=== PATIENT | male | born 1960 | race Caucasian/White ===

== ENCOUNTER 2016-11-28 06:37 | Inpatient (IN) | payer OTHER ==
[~2016-11-28] VITALS: Ht 167.6 cm; Wt 86.2 kg
[~2016-11-28 06:37] MED LIST: ASPIRIN; CARVEDILOL; LISINOPRIL; OMEPRAZOLE; POLY17PO6 PO; TRAM50TA2 PO
[2016-11-28] MEDS ORDERED: ACETAMINOPHEN 325 MG TAB PO STA (07:06)
[2016-11-28] MEDS ORDERED: SOD CHLORIDE 0.9% 1,000 ML IV ONE ×2 (07:30→08:30)
[2016-11-28] MEDS ORDERED: ONDANSETRON 4 MG INJ IV STA (07:41)
[2016-11-28] MEDS ORDERED: morphine 4 MG/ML VIAL IV STA ×2 (07:41→08:55)
[2016-11-28 07:43] LABS: ADD SCAN DIFF NO
[2016-11-28 07:51] LABS: ABNORMAL IP MESSAGE 1; BASOPHILS % 0.2 % (0.0-2.0); HEMATOCRIT 31.9 % (42.0-52.0); HEMOGLOBIN 9.9 g/dl (14.0-18.0); LYMPHOCYTES # 0.6 10^3/ul (0.8-2.9); LYMPHOCYTES % 2.8 % (15.0-51.0); MEAN CORPUSCULAR VOLUME 77.4 fl (82.0-101.0); MEAN PLATELET VOLUME 10.7 fl (7.4-10.4); MONOCYTE # 0.7 10^3/ul (0.3-0.9); MONOCYTES % 3.3 % (0.0-11.0); NEUTROPHIL # 19.7 10^3/ul (1.6-7.5); NEUTROPHILS % 92.9 % (39.0-77.0); PLATELET COUNT 260 10^3/UL (140-415); RED BLOOD COUNT 4.12 10^6/ul (4.70-6.10); RED CELL DISTRIBUTION WIDTH 17.9 % (11.5-14.5); WHITE BLOOD COUNT 21.2 10^3/ul (4.8-10.8)
--- NOTE | 2016-11-28 07:59 | RADRPT ---
PROCEDURE: XR Chest. CLINICAL INDICATION: Possible sepsis. TECHNIQUE: Single frontal view of the chest was obtained. COMPARISON: 05/17/2016 FINDINGS: Cardiomediastinal silhouette appears normal Pulmonary vasculature appears normal. Lung ochoa appear clear. Costophrenic angles are well defined. There are mid sternotomy wires and clips in the mediastinum from previous CABG. IMPRESSION: 1. No evidence for active cardiopulmonary disease. RPTAT: [facility] Physician Vandana Date Time Electronically viewed and signed by jS Dave Physician on 11/28/2016 07:59 /
[2016-11-28 08:03] LABS: ALBUMIN 3.9 g/dl (3.3-4.9); ALBUMIN/GLOBULIN RATIO 0.97; BILIRUBIN,INDIRECT 0.1 mg/dl (0-1.1); BILIRUBIN,TOTAL 0.1 mg/dl (0.2-1.3); CALCIUM 8.5 mg/dl (8.4-10.2); CREATININE 0.85 mg/dl (0.61-1.24); POTASSIUM 3.1 mmol/L (3.5-5.1); TOTAL PROTEIN 7.9 g/dl (6.1-8.1)
[2016-11-28 08:04] LABS: INR 1.25; PROTIME 15.8 Sec (12.2-14.2); PT RATIO 1.2
[2016-11-28 08:05] LABS: PARTIAL THROMBOPLASTIN TIME 40.9 Sec (25.0-35.0)
[2016-11-28 08:14] LABS: TROPONIN-I 0.012 ng/ml (0.00-0.12)
[2016-11-28] MEDS ORDERED: FURO20TA3 PO (08:15)
[2016-11-28] MEDS ORDERED: ASPI81TA3 PO (08:15)
[2016-11-28] MEDS ORDERED: METO-429 PO (08:15)
[2016-11-28] MEDS ORDERED: OMEP40CA6 PO (08:15)
[2016-11-28] MEDS ORDERED: FLUT9.9S NASAL (08:15)
[2016-11-28] MEDS ORDERED: CEFTRIAXONE 1 GM/50 ML (PMX) 50 ML IVPB ONE (08:30)
[2016-11-28] MEDS ORDERED: SOD CHLORIDE 0.9% 250 ML IV ONE (08:30)
[2016-11-28] MEDS ORDERED: SOD CHLORIDE 0.9% 500 ML IV ONE (08:30)
[2016-11-28 09:56] LABS: ADD UMIC YES; URINE BILIRUBIN (Dip) NEGATIVE (NEGATIVE); URINE BLOOD (Dip) 1+ (NEGATIVE); URINE COLOR LT. YELLOW (YELLOW); URINE GLUCOSE (Dip) NEGATIVE (NEGATIVE); URINE KETONES (Dip) 15 (NEGATIVE); URINE LEUKOCYTE ESTERASE (Dip) NEGATIVE (NEGATIVE); URINE NITRITE (Dip) NEGATIVE (NEGATIVE); URINE TOTAL PROTEIN (Dip) 1+ (NEGATIVE); URINE UROBILINOGEN (Dip) 1.0 E.U./dL (0.1-1.0)
[2016-11-28 10:09] LABS: BACTERIA,URINE RARE; URINE RBCS 0-2 /HPF (0)
[2016-11-28] MEDS ORDERED: KETOROLAC 30 MG INJ IV STA (10:53)
[2016-11-28] MEDS ORDERED: METOCLOPRAMIDE 10 MG INJ IV ONE (11:00)
[2016-11-28] MEDS ORDERED: DIPHENHYDRAMINE 50 MG INJ IV ONE (11:00)
[2016-11-28] MEDS ORDERED: ACETAMINOPHEN 325 MG TAB PO PRN (12:00)
[2016-11-28] MEDS ORDERED: ONDANSETRON 4 MG INJ IV PRN ×2 (12:00→15:00)
--- NOTE | 2016-11-28 13:08 | ERA ---
ER Documentation Chief Complaint Date/Time DATE: 11/28/16 TIME: 12:49 Chief Complaint BODYACHES, HEADACHE, FEVER, RECENT DX OF UTI HPI 56-year-old male with a history of hypertension, mitral valve replacement and atrial fibrillation on Eliquis presenting to the ER with complaints of fever, body aches, and headache. He was recently seen by his typists supervisor, Dr. Apple , 2 days ago and had a cardioversion done. During that time, he was noted to be febrile and have a dirty UA. [place] [facility] [place]. Antibiotics were given. Patient signed out AMA and was discharged with Keflex for a UTI. He has been taking his Keflex but does not feel any better. The only symptom that has improved is his dysuria. He denies any chest pain, shortness of breath, cough, sore throat, abdominal pain. He denies any neck stiffness or neck pain. He started having headaches, 6 out of 10, frontal and throbbing yesterday. No nausea or vomiting. Of note, 20 days ago he had a dental procedure where he had a crown placed. He did get prophylactic amoxicillin. ROS All systems reviewed and are negative except as per history of present illness. Medications Home Meds Active Scripts Tramadol HCl (Tramadol HCl) 50 Mg Tablet, 50 MG PO Q4 Y for PAIN, #20 TAB Prov:JOSSUE HALEY PA-C 05/17/16 Reported Medications Omeprazole* (Omeprazole*) 40 Mg Capsule.dr, 40 MG PO DAILY, #30 CAP 11/28/16 Metoprolol Tartrate* (Lopressor*) 50 Mg Tab, 150 MG PO BID, #60 TAB 11/28/16 Furosemide* (Furosemide*) 20 Mg Tablet, 40 MG PO BID, #30 TAB 11/28/16 Fluticasone Propionate (Flonase Allergy Relief) 9.9 Ml [place].susp, 1 SPRAY NASAL BID, #1 BOTTLE TO EACH NOSTRIL 11/28/16 Aspirin* (Aspirin* Chew) 81 Mg Tab.chew, 81 MG PO DAILY, TAB.CHEW 11/28/16 Allergies Allergies: Coded Allergies: No Known Allergy (Unverified , 01/01/16) PMhx/Soc History of Surgery: Yes (MITRAL VALVE REPLACEMENT) Anesthesia Reaction: No Hx Respiratory Disorders: No Hx Cardiac Disorders: Yes (Hypertension, atrial fibrillation, mitral valve replacement) Hx Psychiatric Problems: No Hx Miscellaneous Medical Probl: Yes (CURRENTLY TREATED FOR UTI) Hx Alcohol Use: No Hx Substance Use: No Hx Tobacco Use: No Smoking Status: Never smoker FmHx Family History: No diabetes Physical Exam Vitals Vital Signs Date Time Temp Pulse Resp B/P Pulse Ox O2 Delivery O2 Flow Rate FiO2 11/28/16 13:00 98.7 87 24 143/82 100 Room Air 11/28/16 08:31 99.1 78 15 101/63 98 Nasal Cannula 2.0 11/28/16 07:42 Nasal Cannula 2 11/28/16 06:41 100.8 98 17 108/69 96 Physical Exam Const: No apparent distress, nontoxic Head: Atraumatic Eyes: Normal Conjunctiva ENT: Normal External Ears, Nose and Mouth. Neck: Full range of motion..~ No meningismus. Resp: Clear to auscultation bilaterally Cardio: Regular rate and rhythm, no murmurs Abd: Soft, non tender, non distended. Normal bowel sounds Skin: No petechiae or rashes Back: No midline or flank tenderness Ext: No cyanosis, or edema Neur: Awake and alert Psych: Normal Mood and Affect Result Diagram: 11/28/16 0720 11/28/16 0720 Results 24 hrs Laboratory Tests Test 11/28/16 07:20 11/28/16 09:10 11/28/16 10:47 White Blood Count 21.210^3/ul Red Blood Count 4.1210^6/ul Hemoglobin 9.9g/dl Hematocrit 31.9% Mean Corpuscular Volume 77.4fl Mean Corpuscular Hemoglobin 24.0pg Mean Corpuscular Hemoglobin Concent 31.0g/dl Red Cell Distribution Width 17.9% Platelet Count 65023^3/UL Mean Platelet Volume 10.7fl Neutrophils % 92.9% Lymphocytes % 2.8% Monocytes % 3.3% Eosinophils % 0.0% Basophils % 0.2% Nucleated Red Blood Cells % 0.0/100WBC Neutrophils # 19.710^3/ul Lymphocytes # 0.610^3/ul Monocytes # 0.710^3/ul Eosinophils # 0.010^3/ul Basophils # 0.010^3/ul Nucleated Red Blood Cells # 0.010^3/ul Prothrombin Time 15.8Sec Prothrombin Time Ratio 1.2 INR International Normalized Ratio 1.25 Activated Partial Thromboplast Time 40.9Sec Sodium Level 136mmol/L Potassium Level 3.1mmol/L Chloride Level 105mmol/L Carbon Dioxide Level 21mmol/L Anion Gap 13 Blood Urea Nitrogen 11mg/dl Creatinine 0.85mg/dl Glucose Level 133mg/dl Lactic Acid Level 1.0mmol/L 0.8mmol/L Calcium Level 8.5mg/dl Total Bilirubin 0.1mg/dl Direct Bilirubin 0.00mg/dl Indirect Bilirubin 0.1mg/dl Aspartate Amino Transf (AST/SGOT) 24IU/L Alanine Aminotransferase (ALT/SGPT) 25IU/L Alkaline Phosphatase 106IU/L Troponin I 0.012ng/ml Total Protein 7.9g/dl Albumin 3.9g/dl Globulin 4.00g/dl Albumin/Globulin Ratio 0.97 Urine Color LT. YELLOW Urine Clarity CLEAR Urine pH 5.5 Urine Specific [place] 1.010 Urine Ketones 15 Urine Nitrite NEGATIVE Urine Bilirubin NEGATIVE Urine Urobilinogen 1.0 E.U./dL Urine Leukocyte Esterase NEGATIVE Urine Microscopic RBC 0-2/HPF Urine Microscopic WBC 0-2/HPF Urine Epithelial Cells FEW Urine Bacteria RARE Urine Hemoglobin 1+ Urine Glucose NEGATIVE% Urine Total Protein 1+ Current Medications Medications (Trade) Dose Ordered Sig/Toribio Route PRN Reason Start Time Stop Time Status Last Admin Dose Admin Acetaminophen 1000 mg 1,000 mg ONCE STAT PO 11/28/16 07:06 11/28/16 07:09 DC 11/28/16 07:17 Sodium Chloride (NS) 1,000 ml @ 1,000 mls/hr Q1H ONCE IV 11/28/16 07:30 11/28/16 08:29 DC 11/28/16 07:17 Morphine Sulfate (morphine) 4 mg ONCE STAT IV 11/28/16 07:41 11/28/16 07:43 DC 11/28/16 07:57 Ondansetron HCl 4 mg 4 mg ONCE STAT IV 11/28/16 07:41 11/28/16 07:43 DC 11/28/16 07:56 Sodium Chloride 1,000 ml @ 1,000 mls/hr Q1H ONCE IV 11/28/16 08:30 11/28/16 09:29 DC 11/28/16 08:27 Sodium Chloride 500 ml @ 500 mls/hr Q1H ONCE IV 11/28/16 08:30 11/28/16 09:29 DC 11/28/16 08:27 Sodium Chloride 250 ml @ 250 mls/hr Q1H ONCE IV 11/28/16 08:30 11/28/16 09:29 DC 11/28/16 08:27 Ceftriaxone Sodium (Rocephin) 50 ml @ 100 mls/hr ONCE ONCE IVPB 11/28/16 08:30 11/28/16 08:59 DC 11/28/16 09:11 Morphine Sulfate (morphine) 4 mg ONCE STAT IV 11/28/16 08:55 11/28/16 08:56 DC 11/28/16 09:17 Metoclopramide HCl (Reglan) 10 mg ONCE ONCE IV 11/28/16 11:00 11/28/16 11:01 DC 11/28/16 11:12 Ketorolac Tromethamine (Toradol) 30 mg ONCE STAT IV 11/28/16 10:53 11/28/16 10:54 DC 11/28/16 11:12 Diphenhydramine HCl (Benadryl) 25 mg ONCE ONCE IV 11/28/16 11:00 11/28/16 11:01 DC 11/28/16 11:12 Ondansetron HCl (Zofran Inj) 4 mg ER BRIDGE PRN IV NAUSEA AND/OR VOMITING 11/28/16 12:00 11/29/16 11:59 Acetaminophen (Tylenol Tab) 650 mg ER BRIDGE PRN PO MILD PAIN/FEVER 11/28/16 12:00 11/29/16 11:59 Procedures/MDM EMERGENT LABS AND DIAGNOSTIC STUDIES: Lab Results above were reviewed and interpreted by pr. CBC was notable for significant leukocytosis and anemia 12-lead EKG was interpreted by Samm Rice MD: Normal Sinus Rhythm Normal axis Normal intervals No acute ST or T wave changes suggestive of acute ischemia or STEMI. Radiology Results as interpreted by Radiology below were reviewed by Juana Rice MD: Radiology Results as read by Radiology Chest x-ray does not show any acute abnormality Initial Nursing notes reviewed. Previous Medical Records requested via the Electronic Health Record. EMERGENCY DEPARTMENT COURSE / MEDICAL DECISION MAKING: Patient is presenting with generalized body aches and fever. His workup was notable for fever and leukocytosis. Urinalysis did not show any evidence of infection. His chest x-ray did not show evidence of pneumonia. I have a low suspicion for meningitis or encephalitis. He does not seem to have acute surgical abdomen. It is unclear what his infectious source is. I considered endocarditis, given his recent dental procedure and history of mitral valve replacement. I spoke with his typists supervisor, who stated that he did a transesophageal echocardiogram 2 days ago before his cardioversion and did not see any mitral valve vegetations. Rocephin was given IV. His headache was treated with Toradol, Tylenol, Reglan, and Benadryl. Patient's infectious symptoms have not stabilized and the patient is at risk of rapid decompensation. The patient will be admitted for careful hydration, antibiotic therapy, and infectious source control. Severe Sepsis Assessment: Infectious Source: Unknown Severe Sepsis Managment: Blood Cultures X 2 before broad spectrum antibiotics initiated within 3 hours of recognition. 30 ml/kg NS bolus Completed Initial Lactate: normal Repeat Lactate not indicated as initial < 2.0 Critical Care: Time: 35 minutes Treatments/Evaluations: Emergent fluid management, while maintaining close respiratory support. Immediate broad spectrum antibiotic therapy. Simultaneous assessment for possible sources in order to direct therapy. Consideration for invasive and chemical support to prevent respiratory or cardiac collapse. Accepting Care Team: Current data and ongoing care discussed. Time: Time of admission Primary Provider: Christelle Consulting: none Outstanding Data: cultures Departure Diagnosis: Primary Impression: Sepsis Qualified Code: A41.9 - Sepsis, due to unspecified organism Condition: Serious BRENDA RICE MD November 28, 2016 12:59
[2016-11-28] MEDS: SOD CHLORIDE 0.9% 1,000 ML IV SCH ×2 (14:40→18:27)
[2016-11-28] MEDS ORDERED: MAGNESIUM HYDROXIDE 30ML CUP PO PRN (15:00)
[2016-11-28] MEDS ORDERED: NACL 0.9% 3 ML SYG IV SCH (15:00)
[2016-11-28] MEDS ORDERED: HYDROCODONE/APAP (5/325) TAB PO PRN (15:00)
[2016-11-28] MEDS ORDERED: morphine 2 MG INJ IV PRN (15:00)
[2016-11-28] MEDS ORDERED: ACETAMINOPHEN 650 MG SUPP PR PRN (15:00)
[2016-11-28] MEDS ORDERED: VANCOMYCIN IV PER PHARMACY XX SCH (15:00)
[2016-11-28] MEDS ORDERED: DOCUSATE SODIUM 100 MG CAP PO PRN (15:00)
[2016-11-28] MEDS ORDERED: BISACODYL 10 MG SUPP PR PRN (15:00)
--- NOTE | 2016-11-28 15:16 | CONS ---
DATE OF ADMISSION: 11/28/2016 DATE OF CONSULTATION: 11/28/2016 TYPE OF CONSULTATION: Infectious Disease. REASON FOR CONSULTATION: Antibiotic management. HISTORY OF PRESENT ILLNESS: Amando Miller is a 56-year-old male with numerous problems who comes in w ith fever, body aches, headaches and recent diagnosis of UTI. His past problems include: 1. Hypertension. 2. Mitral valve replacement. 3. Atrial fibrillation, on Eliquis. Acutely, the patient presents with fever, body aches and headache. He was seen by Dr. Apple a few days ago and had cardioversion done. He was febrile and had a UA which appeared to be infected. H e was sent to [facility]. Antibiotics were given. He signed out AMA, discharged with [facility] ex for UTI. He does not feel any better. Denies chest pain, shortness of breath, sore throat, neck stiffness or neck pain. There is no nausea or vomiting. He had a dental procedure 20 days ago, puga d a crown placed, and was put on prophylactic amoxicillin. PAST MEDICAL HISTORY: Operations as outlined. FAMILY HISTORY: Noncontributory. SOCIAL HISTORY: He does not smoke, drink or abuse drugs. ALLERGIES: NONE TO PENICILLIN, SULFA OR FOODS. MEDICATIONS: Per chart. REVIEW OF SYSTEMS: As per HPI. PHYSICAL EXAMINATION: GENERAL: The patient is a well-developed, well-nourished male who is alert, responsive, in no acute distress. VITAL SIGNS: Stable. Temperature max of 100.8. SKIN: Without generalized rash. HEENT: Within normal limits. NECK: Supple. LYMPH NODES: None palpable. CHEST: Decreased breath sounds at the bases. HEART: Without murmur or gallop. ABDOMEN: Soft, nontender, without organosplenomegaly or masses. EXTREMITIES: Without cyanosis, clubbing, or edema. RECTAL AND GENITAL: Deferred. NEUROLOGIC: No focal neurological abnormalities. LABORATORY DATA: White count was 21.2, H and H of 9.9 and 31.9, platelet count 260,000. BUN and cr eatinine 11/0.85. IMPRESSION AND PLAN: The patient was started on ceftriaxone. His chest x-ray showed no evidence fo r acute or active cardiopulmonary disease. UA was negative for nitrites, leukocyte esterase, 0 to 2 white cells per high-power field. So the etiology of his illness is really not clear. He has had blood cultures done and urine cultures done. I think we will put him on vancomycin and cefepime to cover him until we know what is going on. I will dictate my findings to the hospitalist. Dictated By: SARAH GARRETT MD, JD/PALLAVI Conf#: [id number] DID#: [id number]
[2016-11-28] MEDS: PANTOPRAZOLE 40 MG INJ IV SCH (15:25)
[2016-11-28] MEDS ORDERED: VANCOMYCIN 1.75 GM in SOD CHLORIDE 0.9% 500 ML IVPB SCH (16:00)
[2016-11-28 16:30] VITALS: TEMP 102.1
[2016-11-28] MEDS ORDERED: IBUPROFEN 600 MG TAB PO ONE (16:30)
[2016-11-28] MEDS ORDERED: POTASSIUM CHLORIDE (SR) 20 MEQ TAB PO STA (16:52)
--- NOTE | 2016-11-28 16:58 | HP ---
Date/Time of Note Date/Time of Note DATE: 11/28/16 TIME: 16:52 Assessment/Plan VTE Prophylaxis VTE Prophylaxis Intervention: SCD's Assessment/Plan Chief Complaint/Hosp Course Impression and plan 1. Sepsis. Etiology unknown. ID was consulted. Continue on antibiotics. Await bhgaat cultures. Continue with antipyretics as needed for fever. Continue on IV fluids. 2. Essential hypertension. Continue antihypertensives and adjust needed 3. History of dysrhythmia. Continue beta-merlin. Patient to be monitored on telemetry unit. We will follow-up with patient's story analyst (Dr. Apple) 4. Hypokalemia. Will replete and check level in a.m. 5. Anemia. Follow-up on iron panel Discussed plan of care with Dr. Bourgeois DVT prophylaxis: SCDs Admission process 40 minute Problems: HPI/ROS Admit Date/Time Admit Date/Time Hx of Present Illness This is a 56-year-old male with reported past medical history of hypertension and suspect CHF who did come to [facility] due to reports of generalized body ache and fevers. Of note patient was recently seen by his story analyst 2 days prior to his admission at [facility] for JOSELINE and reported cardioversion. At that time over that he was noted with possible UTI. It was reported that the patient left AMA and was discharged with Keflex. He reports that his fevers and general body aches progressively got worse and subsequently went to [facility] for further evaluation. Upon examination he did have initial urinalysis that did show him to have a negative leukocyte esterase test. He did have a white count of 21.2 and imaging of his chest show no evidence of active cardiopulmonary disease process. He also was noted with a fever as high as 102.1. Patient also noted with some tachycardia with heart rate 103. Patient denies any chest pain or shortness of breath. He denies any sick contacts or any coughing. He also reports that he has not had his flu shot. He denies any other symptoms besides his general body aches and chills and fevers. We will evaluate him for the aformentiond issues ROS 12 point review of systems obtained and entirely negative except that mentioned in history of present illness PMH/Family/Social Past Medical History Medical/surgical history 1. Hypertension 2. History of dysrhythmia Social History Smoking Status: Never smoker Exam/Review of Systems Vital Signs Vitals Vital Signs Date Time Temp Pulse Resp B/P Pulse Ox O2 Delivery O2 Flow Rate FiO2 11/28/16 16:30 102.1 103 18 146/81 11/28/16 13:00 100 Room Air 11/28/16 08:31 2.0 Exam Constitutional: alert, oriented Psych: nl mood/affect, no complaints Head: normocephalic Neck: non-tender, No jvd Respiratory: clear to auscultation, normal air movement Cardiovascular: other Gastrointestinal: non-tender, soft Musculoskeletal: nl extremities to inspection, nl gait and stance Extremities: normal pulses Skin: nl turgor, No rash or lesions Labs Result Diagram: 11/28/1671911/28/16 0720 Medications Medications Current Medications Aspirin (Aspirin) 81 mg DAILY PO ; Start 11/29/16 at 09:00 Fluticasone Propionate (Flonase 0.05% Nasal) 1 spray BID NASAL ; Start 11/28/16 at 21:00 Furosemide (Lasix) 40 mg BID@06,18 PO ; Start 11/28/16 at 18:00 Metoprolol Tartrate (Lopressor) 150 mg BID PO ; Start 11/28/16 at 21:00 Tramadol HCl 50 mg 50 mg Q4 PRN PO PAIN; Start 11/28/16 at 14:30 Sodium Chloride (NS) 1,000 ml @ 75 mls/hr [id number] IV Last administered on 11/28t 14:40; Admin Dose 75 MLS/HR; Start 11/28/16 at 14:40 Ondansetron HCl (Zofran Inj) 4 mg Q6H PRN IV NAUSEA AND/OR VOMITING; Start at 15:00 Acetaminophen (Tylenol Tab) 650 mg Q6H PRN PO PAIN LEVEL 1-3 OR FEVER; Start at 15:00 Acetaminophen (Tylenol Supp) 650 mg Q6H PRN IN PAIN LEVEL 1-3 OR FEVER; Start 11/28/16 at 15:00 Acetaminophen/ Hydrocodone Bitart ([place] (5/325)) 1 tab Q6H PRN PO MODERATE PAIN LEVEL 4-6; Start 11/28/16 at 15:00 Acetaminophen/ Hydrocodone Bitart ([place] (5/325)) 2 tab Q6H PRN PO SEVERE PAIN LEVEL 7-10; Start 11/28/16 at 15:00 Morphine Sulfate (morphine) 2 mg Q4H PRN IV SEVERE PAIN LEVEL 7-10; Start 11/28 at 15:00 Docusate Sodium (Colace) 100 mg Q12H PRN PO CONSTIPATION; Start 11/28/16 at 15: 00 Magnesium Hydroxide (Milk Of Mag) 30 ml DAILY PRN PO CONSTIPATION; Start at 15:00 Bisacodyl (Dulcolax Supp) 10 mg DAILY PRN IN CONSTIPATION; Start 11/28/16 at 15 :00 Pantoprazole 40 mg 40 mg DAILY@06 IV ; Start 11/28/16 at 16:00 Cefepime HCl 50 ml @ 100 mls/hr Q12 IVPB ; Start 11/28/16 at 21:00 Vancomycin HCl 1.75 gm/Sodium Chloride 500 ml @ 125 mls/hr NOW IVPB Last administered on 11/28/16t 16:29; Admin Dose 125 MLS/HR; Start 11/28/16 at 16:00 ; Stop 11/28/16 at 19:59 Vancomycin HCl/ Sodium Chloride (Vancocin/NS) 250 ml @ 83.333 mls/ hr Q12H IVPB ; Start 11/29/16 at 04:00 URBAN STOCKTON November 28, 2016 16:58
[2016-11-28 17:17] VITALS: PULSE 90
[2016-11-28 17:45] VITALS: Ht 167.6 cm; Wt 86.2 kg
[2016-11-28 18:20] LABS: TOTAL IRON BINDING CAPACITY 314 ug/dl (241-421)
[2016-11-28 18:21] LABS: IRON < 10 ug/dl (35-150)
[2016-11-28] MEDS: FUROSEMIDE 20 MG TAB PO SCH (18:26)
[2016-11-28 18:50] VITALS: PULSE 61
[2016-11-28 19:51] VITALS: BP 115/65; RESP 20
[2016-11-28 20:00] VITALS: PULSE 77
[2016-11-28] MEDS: CEFEPIME 1GM/50 ML (PMX) 50 ML IVPB SCH (20:26)
[2016-11-28] MEDS: FLUTICASONE 0.05% 16 GM NAS SPRAY NASAL SCH (20:27)
[2016-11-28] MEDS: METOPROLOL 50 MG TAB PO SCH (20:27)
[2016-11-28] MEDS ORDERED: CARV6.25 PO (20:31)
[2016-11-28] MEDS ORDERED: TAMS-14 PO (20:31)
[2016-11-28] MEDS ORDERED: APIX2.5T PO (20:33)
[2016-11-29] VITALS (11 sets, daily range): BP systolic 115–143; BP diastolic 63–74; PULSE 78–88; RESP 18–21
[2016-11-29] MEDS: ACETAMINOPHEN 325 MG TAB PO PRN ×2 (00:28→18:03)
[2016-11-29] MEDS: VANCOMYCIN 1.25 GM in SOD CHLORIDE 0.9% 250 ML IVPB SCH ×2 (03:44→16:05)
[2016-11-29] MEDS: traMADol 50 MG TAB PO PRN ×2 (03:51→09:14)
[2016-11-29] MEDS: PANTOPRAZOLE 40 MG INJ IV SCH (05:44)
[2016-11-29] MEDS: HYDROCODONE/APAP (5/325) TAB PO PRN ×2 (05:45→19:10)
[2016-11-29] MEDS: FUROSEMIDE 20 MG TAB PO SCH ×2 (05:46→18:05)
[2016-11-29] MEDS ORDERED: PANTOPRAZOLE (EC) 40 MG TAB PO SCH (06:00)
[2016-11-29 07:58] LABS: ALBUMIN 3.2 g/dl (3.3-4.9); ALBUMIN/GLOBULIN RATIO 0.91; BILIRUBIN,INDIRECT 0.1 mg/dl (0-1.1); BILIRUBIN,TOTAL 0.1 mg/dl (0.2-1.3); CALCIUM 7.6 mg/dl (8.4-10.2); CHOL/HDL RATIO 6.2 RATIO; CREATININE 0.74 mg/dl (0.61-1.24); MAGNESIUM 1.8 mg/dl (1.7-2.5); PHOSPHORUS 2.5 mg/dl (2.5-4.9); POTASSIUM 3.1 mmol/L (3.5-5.1); TOTAL PROTEIN 6.7 g/dl (6.1-8.1)
[2016-11-29 08:14] LABS: T3 UPTAKE 44.9 % (23.5-40.5)
[2016-11-29 08:27] LABS: THYROID STIMULATING HORMONE 3.32 MIU/L (0.465-4.680)
[2016-11-29] MEDS: FLUTICASONE 0.05% 16 GM NAS SPRAY NASAL SCH ×2 (09:00→20:24)
[2016-11-29] MEDS: CEFEPIME 1GM/50 ML (PMX) 50 ML IVPB SCH ×2 (09:07→20:23)
[2016-11-29] MEDS: TAMSULOSIN (SR) 0.4 MG CAP PO SCH (09:08)
[2016-11-29] MEDS: ASPIRIN 81 MG TAB PO SCH (09:08)
[2016-11-29] MEDS: METOPROLOL 50 MG TAB PO SCH ×2 (09:09→20:25)
--- NOTE | 2016-11-29 10:58 | CONS ---
Date/Time of Note Date/Time of Note DATE: 11/29/16 TIME: 10:57 Assessment/Plan Assessment/Plan Chief Complaint/Hosp Course ID PROGRESS NOTE CURRENT ABX: Cefepime + Vanco IV * 11/28/16 0720 11/29/16 0620 24H INTERVAL SUMMARY * 56 yo M, A/A/O, good historian, eating lunch * Reports dysuria mild burning, no hematuria, voiding OK * NO fever today, no CP,SOB . ------ PHYSICAL EXAMINATION: VITAL SIGNS: Afebrile, VSS, NAD GENERAL:NAD, A/A/O HEENT: Unremarkable NECK: Full ROM LUNGS: Equal chest rise without dyspnea on observation HEART: RRR ABDOMEN: Soft EXTREMITIES: Warm SKIN: Intact NEUROLOGICAL: Grossly intact ID IMPRESSION: 56 yo M admit with: 1. Sepsis on admission w/fever 102.1, myalgia, mild tachycardia, leukocytosis = > Dx with Sepsis due to UTI @ [place] recent-> DC'd on po Keflex w/ persistent fevers. 2. Complicated UTI w/ hematuria per UA w/ hx of Renal Stones * ABD X-ray w/(+) Possible large renal and ureteral stones. CT KUB may be helpful. 3. Hypertension. 4. H/O Mitral valve replacement ~2013 [facility] 3. Atrial fibrillation, on Eliquis-> s/p cardioversion prior to admission, EKG in ED revealed NSR 5. GERD w/H/O Chronic gastritis per EGD PATHO Report December 2015 A-Gastric biopsy : * -- Chronic gastritis, mild to focally moderate, active, involving antral and oxyntic mucosa. * -- No Helicobacter organisms are identified in a Giemsa stain * -- There is no evidence of intestinal metaplasia or malignancy. 6. H/O Polypectomy December 2015 B-Cecum, polyp, biopsy: * -- Diminutive tubular adenoma. * -- Normal mucosa is also present. * -- There is no evidence of malignancy. (-) MRSA Nares INVASIVES: PIV CURRENT ABX: Cefepime + Vanco IV ID RECOMMENDATION 1. Continue current ABX & await clinical improvement. 2. Consider CT ABD per radiology recommendations r/o obstructive uropathy; consider urology consult if obstructive renal stones present. 3. Obtain micro records from [facility] -> taper ABX per micro results -- probably DC Vanco IV soon .. Problems: Consultation Date/Type/Reason Admit Date/Time November 28, 2016 at 11:40 Initial Consult Date Exam/Review of Systems Vital Signs Vitals Vital Signs Date Time Temp Pulse Resp B/P Pulse Ox O2 Delivery O2 Flow Rate FiO2 11/29/16 08:32 86 11/29/16 08:07 98.1 18 122/68 95 11/28/16 13:00 Room Air 11/28/16 08:31 2.0 Intake and Output 11/28/16 11/28/16 11/29/16 15:00 23:00 07:00 Intake Total 1800 ml 645 ml 845 ml Balance 1800 ml 645 ml 845 ml Results Result Diagram: 11/28/16 0720 11/29/16 0620 Results 24 hrs Laboratory Tests Test 11/28/16 17:26 11/29/16 06:20 Lactic Acid Level 1.1 Iron Level < 10 L Total Iron Binding Capacity 314 Percent Iron Saturation Sodium Level 139 Potassium Level 3.1 L Chloride Level 110 Carbon Dioxide Level 21 Anion Gap 11 Blood Urea Nitrogen 9 Creatinine 0.74 Glucose Level 81 # Hemoglobin A1c 6.1 H Calcium Level 7.6 L Phosphorus Level 2.5 Magnesium Level 1.8 Total Bilirubin 0.1 L Direct Bilirubin 0.00 Indirect Bilirubin 0.1 Aspartate Amino Transf (AST/SGOT) 78 #H Alanine Aminotransferase (ALT/SGPT) 55 Alkaline Phosphatase 141 H Total Protein 6.7 # Albumin 3.2 L Globulin 3.50 H Albumin/Globulin Ratio 0.91 Triglycerides Level 139 Cholesterol Level 132 LDL Cholesterol, Calculated 83 HDL Cholesterol 21 L Cholesterol/HDL Ratio 6.2 Thyroid Stimulating Hormone (TSH) 3.320 Free Thyroxine Index 4.45 H Thyroxine (T4) 9.9 Triiodothyronine (T3) Uptake 44.9 H Medications Medications Current Medications Aspirin (Aspirin) 81 mg DAILY PO Last administered on 11/29/16 09:08; Admin Dose 81 MG; Start 11/29/16 at 09:00 Fluticasone Propionate (Flonase 0.05% Nasal) 1 spray BID NASAL Last administered on 11/28/16 20:27; Admin Dose 1 SPRAY; Start 11/28/16 at 21:00 Furosemide (Lasix) 40 mg BID@06,18 PO Last administered on 11/29/16 05:46; Admin Dose 40 MG; Start 11/28/16 at 18:00 Metoprolol Tartrate (Lopressor) 150 mg BID PO Last administered on 11/29/16 09 :09; Admin Dose 150 MG; Start 11/28/16 at 21:00 Tramadol HCl 50 mg 50 mg Q4 PRN PO PAIN Last administered on 11/29/16 09:14; Admin Dose 50 MG; Start 11/28/16 at 14:30 Sodium Chloride (NS) 1,000 ml @ 75 mls/hr [id number] IV Last administered on 11/28 18:27; Admin Dose 75 MLS/HR; Start 11/28/16 at 14:40 Ondansetron HCl (Zofran Inj) 4 mg Q6H PRN IV NAUSEA AND/OR VOMITING; Start at 15:00 Acetaminophen (Tylenol Tab) 650 mg Q6H PRN PO PAIN LEVEL 1-3 OR FEVER Last administered on 11/29/16 00:28; Admin Dose 650 MG; Start 11/28/16 at 15:00 Acetaminophen (Tylenol Supp) 650 mg Q6H PRN MD PAIN LEVEL 1-3 OR FEVER; Start 11/28/16 at 15:00 Acetaminophen/ Hydrocodone Bitart ([place] (5/325)) 1 tab Q6H PRN PO MODERATE PAIN LEVEL 4-6 Last administered on 11/29/16 00:28; Admin Dose 1 TAB; Start at 15:00 Acetaminophen/ Hydrocodone Bitart ([place] (5/325)) 2 tab Q6H PRN PO SEVERE PAIN LEVEL 7-10 Last administered on 11/29/16 05:45; Admin Dose 2 TAB; Start at 15:00 Morphine Sulfate (morphine) 2 mg Q4H PRN IV SEVERE PAIN LEVEL 7-10; Start 11/28 at 15:00 Docusate Sodium (Colace) 100 mg Q12H PRN PO CONSTIPATION; Start 11/28/16 at 15: 00 Magnesium Hydroxide (Milk Of Mag) 30 ml DAILY PRN PO CONSTIPATION; Start at 15:00 Bisacodyl (Dulcolax Supp) 10 mg DAILY PRN MD CONSTIPATION; Start 11/28/16 at 15 :00 Pantoprazole 40 mg 40 mg DAILY@06 IV Last administered on 11/29/16 05:44; Admin Dose 40 MG; Start 11/28/16 at 16:00 Cefepime HCl 50 ml @ 100 mls/hr Q12 IVPB Last administered on 11/29/16 09:07 ; Admin Dose 100 MLS/HR; Start 11/28/16 at 21:00 Vancomycin HCl/ Sodium Chloride (Vancocin/NS) 250 ml @ 83.333 mls/ hr Q12H IVPB Last administered on 11/29/16 03:44; Admin Dose 83.333 MLS/HR; Start at 04:00 Carvedilol (Coreg) 6.25 mg BID PO Last administered on 11/29/16 09:10; Admin Dose 6.25 MG; Start 11/28/16 at 21:00 Tamsulosin HCl (Flomax) 0.4 mg DAILY PO Last administered on 11/29/16 09:08; Admin Dose 0.4 MG; Start 11/29/16 at 09:00 Miscellaneous Information (*Rx Drug Level Order Reminder*) VANCOMYCIN TROUGH AT 0300 ONCE ONCE XX ; Start 11/30/16 at 03:00; Stop 11/30/16 at 03:01 VERA URBINA NP November 29, 2016 10:58
[2016-11-29] MEDS: SOD CHLORIDE 0.9% 1,000 ML IV SCH (16:06)
[2016-11-29] MEDS ORDERED: ACET/BUTAL/CAFF/CODEINE CAP PO ONE (19:30)
[2016-11-29 19:45] LABS: ADD SCAN DIFF NO
[2016-11-29 19:47] LABS: BASOPHILS % 0.4 % (0.0-2.0); EOSINOPHILS # 0.1 10^3/ul (0.0-0.5); HEMATOCRIT 29.6 % (42.0-52.0); HEMOGLOBIN 9.1 g/dl (14.0-18.0); LYMPHOCYTES % 11.7 % (15.0-51.0); MEAN CORPUSCULAR HEMOGLOBIN 23.7 pg (29.0-33.0); MEAN CORPUSCULAR HGB CONC 30.7 g/dl (32.0-37.0); MEAN CORPUSCULAR VOLUME 77.1 fl (82.0-101.0); MEAN PLATELET VOLUME 10.7 fl (7.4-10.4); MONOCYTE # 0.8 10^3/ul (0.3-0.9); MONOCYTES % 9.5 % (0.0-11.0); NEUTROPHIL # 6.2 10^3/ul (1.6-7.5); NEUTROPHILS % 75.6 % (39.0-77.0); NUCLEATED RED BLOOD CELLS% 0.4 /100WBC (0.0-0.0); PLATELET COUNT 236 10^3/UL (140-415); RED BLOOD COUNT 3.84 10^6/ul (4.70-6.10); WHITE BLOOD COUNT 8.2 10^3/ul (4.8-10.8)
--- NOTE | 2016-11-29 20:18 | PN ---
Date/Time of Note Date/Time of Note DATE: 11/29/16 TIME: 20:08 Assessment/Plan VTE Prophylaxis VTE Prophylaxis Intervention: SCD's Lines/Catheters IV [facility] Peripheral IV Urinary Cath still in place: No Assessment/Plan Chief Complaint/Hosp Course Impression and plan 1. Sepsis. continue ABX per ID. Await bhagat cultures. Continue with antipyretics as needed for fever. Continue on IV fluids. 2. Essential hypertension. Continue antihypertensives and adjust needed 3. History of dysrhythmia. Continue beta-merlin. Patient to be monitored on telemetry unit. 4. Hypokalemia. Will replete and check level in a.m. 5. Anemia. Follow-up on iron panel Discussed plan of care with Dr. Bourgeois DISPO/PLAN: cont on abx. await for clinical improvement. await culture results. d/c when medically stable and cleared by consultants DVT prophylaxis: SCDs Problems: Subjective 24 Hr Interval Summary Free Text/Dictation no s/s of distress at this time. comfortable Exam/Review of Systems Vital Signs Vitals Vital Signs Date Time Temp Pulse Resp B/P Pulse Ox O2 Delivery O2 Flow Rate FiO2 11/29/16 20:07 99.2 79 20 143/72 95 11/28/16 13:00 Room Air 11/28/16 08:31 2.0 Intake and Output 11/28/16 11/28/16 11/29/16 15:00 23:00 07:00 Intake Total 1800 ml 645 ml 845 ml Balance 1800 ml 645 ml 845 ml Exam Constitutional: alert, oriented Psych: nl mood/affect, no complaints Head: normocephalic Neck: non-tender, No jvd Respiratory: clear to auscultation, normal air movement Cardiovascular: other Gastrointestinal: non-tender, soft Musculoskeletal: nl extremities to inspection, nl gait and stance Extremities: normal pulses Skin: nl turgor, No rash or lesions Results Result Diagram: 11/29/16 1930 11/29/16 0620 Results 24 hrs Laboratory Tests Test 11/29/16 06:20 11/29/16 19:30 Sodium Level 139 Potassium Level 3.1 L Chloride Level 110 Carbon Dioxide Level 21 Anion Gap 11 Blood Urea Nitrogen 9 Creatinine 0.74 Glucose Level 81 # Hemoglobin A1c 6.1 H Calcium Level 7.6 L Phosphorus Level 2.5 Magnesium Level 1.8 Total Bilirubin 0.1 L Direct Bilirubin 0.00 Indirect Bilirubin 0.1 Aspartate Amino Transf (AST/SGOT) 78 #H Alanine Aminotransferase (ALT/SGPT) 55 Alkaline Phosphatase 141 H Total Protein 6.7 # Albumin 3.2 L Globulin 3.50 H Albumin/Globulin Ratio 0.91 Triglycerides Level 139 Cholesterol Level 132 LDL Cholesterol, Calculated 83 HDL Cholesterol 21 L Cholesterol/HDL Ratio 6.2 Thyroid Stimulating Hormone (TSH) 3.320 Free Thyroxine Index 4.45 H Thyroxine (T4) 9.9 Triiodothyronine (T3) Uptake 44.9 H White Blood Count 8.2 # Red Blood Count 3.84 L Hemoglobin 9.1 L Hematocrit 29.6 L Mean Corpuscular Volume 77.1 L Mean Corpuscular Hemoglobin 23.7 L Mean Corpuscular Hemoglobin Concent 30.7 L Red Cell Distribution Width 18.0 H Platelet Count 236 Mean Platelet Volume 10.7 H Neutrophils % 75.6 Lymphocytes % 11.7 L Monocytes % 9.5 Eosinophils % 1.0 Basophils % 0.4 Nucleated Red Blood Cells % 0.4 H Neutrophils # 6.2 Lymphocytes # 1.0 Monocytes # 0.8 Eosinophils # 0.1 Basophils # 0.0 Nucleated Red Blood Cells # 0.0 Medications Medications Current Medications Aspirin (Aspirin) 81 mg DAILY PO Last administered on 11/29/16 09:08; Admin Dose 81 MG; Start 11/29/16 at 09:00 Fluticasone Propionate (Flonase 0.05% Nasal) 1 spray BID NASAL Last administered on 11/28/16 20:27; Admin Dose 1 SPRAY; Start 11/28/16 at 21:00 Furosemide (Lasix) 40 mg BID@06,18 PO Last administered on 11/29/16 18:05; Admin Dose 40 MG; Start 11/28/16 at 18:00 Metoprolol Tartrate (Lopressor) 150 mg BID PO Last administered on 11/29/16 09 :09; Admin Dose 150 MG; Start 11/28/16 at 21:00 Tramadol HCl 50 mg 50 mg Q4 PRN PO PAIN Last administered on 11/29/16 09:14; Admin Dose 50 MG; Start 11/28/16 at 14:30 Sodium Chloride (NS) 1,000 ml @ 75 mls/hr [id number] IV Last administered on 11/29 16:06; Admin Dose 75 MLS/HR; Start 11/28/16 at 14:40 Ondansetron HCl (Zofran Inj) 4 mg Q6H PRN IV NAUSEA AND/OR VOMITING Last administered on 11/29/16 18:03; Admin Dose 4 MG; Start 11/28/16 at 15:00 Acetaminophen (Tylenol Tab) 650 mg Q6H PRN PO PAIN LEVEL 1-3 OR FEVER Last administered on 11/29/16 18:03; Admin Dose 650 MG; Start 11/28/16 at 15:00 Acetaminophen (Tylenol Supp) 650 mg Q6H PRN [place] PAIN LEVEL 1-3 OR FEVER; Start 11/28/16 at 15:00 Acetaminophen/ Hydrocodone Bitart ([place] (5/325)) 1 tab Q6H PRN PO MODERATE PAIN LEVEL 4-6 Last administered on 11/29/16 00:28; Admin Dose 1 TAB; Start at 15:00 Acetaminophen/ Hydrocodone Bitart ([place] (5/325)) 2 tab Q6H PRN PO SEVERE PAIN LEVEL 7-10 Last administered on 11/29/16 19:10; Admin Dose 2 TAB; Start at 15:00 Morphine Sulfate (morphine) 2 mg Q4H PRN IV SEVERE PAIN LEVEL 7-10; Start 11/28 at 15:00 Docusate Sodium (Colace) 100 mg Q12H PRN PO CONSTIPATION; Start 11/28/16 at 15: 00 Magnesium Hydroxide (Milk Of Mag) 30 ml DAILY PRN PO CONSTIPATION; Start at 15:00 Bisacodyl (Dulcolax Supp) 10 mg DAILY PRN [place] CONSTIPATION; Start 11/28/16 at 15 :00 Pantoprazole 40 mg 40 mg DAILY@06 IV Last administered on 11/29/16 05:44; Admin Dose 40 MG; Start 11/28/16 at 16:00 Cefepime HCl 50 ml @ 100 mls/hr Q12 IVPB Last administered on 11/29/16 09:07 ; Admin Dose 100 MLS/HR; Start 11/28/16 at 21:00 Vancomycin HCl/ Sodium Chloride (Vancocin/NS) 250 ml @ 83.333 mls/ hr Q12H IVPB Last administered on 11/29/16 16:05; Admin Dose 83.333 MLS/HR; Start at 04:00 Carvedilol (Coreg) 6.25 mg BID PO Last administered on 11/29/16 09:10; Admin Dose 6.25 MG; Start 11/28/16 at 21:00 Tamsulosin HCl (Flomax) 0.4 mg DAILY PO Last administered on 11/29/16 09:08; Admin Dose 0.4 MG; Start 11/29/16 at 09:00 Miscellaneous Information (*Rx Drug Level Order Reminder*) VANCOMYCIN TROUGH AT 0300 ONCE ONCE XX ; Start 11/30/16 at 03:00; Stop 11/30/16 at 03:01 Apixaban (Eliquis) 2.5 mg BID PO ; Start 11/29/16 at 21:00 URBAN STOCKTON November 29, 2016 20:18
[2016-11-29] MEDS: APIXABAN 5 MG TABLET PO SCH (20:27)
[2016-11-30] VITALS (13 sets, daily range): BP systolic 112–188; BP diastolic 62–96; PULSE 66–86; RESP 17–20
[2016-11-30 04:26] LABS: ADD SCAN DIFF NO
[2016-11-30 04:32] LABS: BASOPHILS % 0.4 % (0.0-2.0); EOSINOPHILS # 0.2 10^3/ul (0.0-0.5); EOSINOPHILS % 1.8 % (0.0-7.0); HEMATOCRIT 27.9 % (42.0-52.0); HEMOGLOBIN 8.7 g/dl (14.0-18.0); LYMPHOCYTES # 1.4 10^3/ul (0.8-2.9); LYMPHOCYTES % 16.4 % (15.0-51.0); MEAN CORPUSCULAR HGB CONC 31.2 g/dl (32.0-37.0); MEAN CORPUSCULAR VOLUME 77.1 fl (82.0-101.0); MEAN PLATELET VOLUME 10.7 fl (7.4-10.4); MONOCYTE # 1.2 10^3/ul (0.3-0.9); NEUTROPHIL # 5.6 10^3/ul (1.6-7.5); NEUTROPHILS % 66.1 % (39.0-77.0); NUCLEATED RED BLOOD CELLS% 0.2 /100WBC (0.0-0.0); PLATELET COUNT 209 10^3/UL (140-415); RED BLOOD COUNT 3.62 10^6/ul (4.70-6.10); RED CELL DISTRIBUTION WIDTH 17.9 % (11.5-14.5); WHITE BLOOD COUNT 8.4 10^3/ul (4.8-10.8)
[2016-11-30 04:59] LABS: CREATININE 0.66 mg/dl (0.61-1.24)
[2016-11-30 05:01] LABS: CALCIUM 7.8 mg/dl (8.4-10.2); CREATININE 0.66 mg/dl (0.61-1.24)
[2016-11-30] MEDS: VANCOMYCIN 1.25 GM in SOD CHLORIDE 0.9% 250 ML IVPB SCH ×3 (05:27→20:12)
[2016-11-30] MEDS: PANTOPRAZOLE 40 MG INJ IV SCH (05:28)
[2016-11-30] MEDS: FUROSEMIDE 20 MG TAB PO SCH ×2 (05:28→17:24)
[2016-11-30] MEDS: SOD CHLORIDE 0.9% 1,000 ML IV SCH ×2 (05:29→20:13)
[2016-11-30] MEDS: ACETAMINOPHEN 325 MG TAB PO PRN (07:01)
[2016-11-30] MEDS: traMADol 50 MG TAB PO PRN (07:02)
[2016-11-30] MEDS ORDERED: POTASSIUM CHLORIDE (SR) 20 MEQ TAB PO STA (07:47)
[2016-11-30] MEDS: FLUTICASONE 0.05% 16 GM NAS SPRAY NASAL SCH ×2 (08:43→20:12)
[2016-11-30] MEDS: CEFEPIME 1GM/50 ML (PMX) 50 ML IVPB SCH ×2 (08:43→20:10)
[2016-11-30] MEDS: ASPIRIN 81 MG TAB PO SCH (08:43)
[2016-11-30] MEDS: TAMSULOSIN (SR) 0.4 MG CAP PO SCH (08:45)
[2016-11-30] MEDS: APIXABAN 5 MG TABLET PO SCH ×2 (08:45→20:12)
[2016-11-30] MEDS: METOPROLOL 50 MG TAB PO SCH ×2 (08:46→20:11)
--- NOTE | 2016-11-30 14:59 | PN ---
Date/Time of Note Date/Time of Note DATE: 11/30/16 TIME: 14:49 Assessment/Plan VTE Prophylaxis VTE Prophylaxis Intervention: other (eliquis) Lines/Catheters [facility] ([facility]): Peripheral IV Urinary Cath still in place: No Assessment/Plan Chief Complaint/Hosp Course Impression and plan 1. Sepsis. continue ABX per ID. blood and urine culture negative so far. Continue with antipyretics as needed for fever. Continue on IV fluids. Follow up ID recs, possible CT abd? 2. Essential hypertension. Continue antihypertensives and adjust needed 3. History of dysrhythmia. Continue beta-merlin. Patient to be monitored on telemetry unit. stable 4. Hypokalemia. Will replete and check level in a.m. 5. Anemia. Follow-up on iron panel Discussed plan of care with Dr. Bourgeois DISPO/PLAN: cont on abx. still febrile await for clinical improvement. d/c when medically stable and cleared by consultants DVT prophylaxis: SCDs Problems: Subjective 24 Hr Interval Summary Free Text/Dictation Still with noted low-grade fevers. Denies any chest pain shortness of breath or dysuria.. Does report having some headaches at times Exam/Review of Systems Vital Signs Vitals Vital Signs Date Time Temp Pulse Resp B/P Pulse Ox O2 Delivery O2 Flow Rate FiO2 11/30/16 12:01 75 11/30/16 11:51 99.9 17 121/68 97 11/28/16 13:00 Room Air 11/28/16 08:31 2.0 Intake and Output 11/29/16 11/29/16 11/30/16 15:00 23:00 07:00 Intake Total 50 ml 2295 ml 220 ml Output Total 600 ml 450 ml Balance 50 ml 1695 ml -230 ml Exam Constitutional: alert, oriented Psych: no complaints Neck: supple, No jvd Respiratory: clear to auscultation, normal air movement Cardiovascular: regular rate and rhythm ( ) Gastrointestinal: non-tender, soft Musculoskeletal: nl extremities to inspection Neurological: [employer] II-XII intact, nl mental status, nl speech Skin: nl turgor, No rash or lesions Results Result Diagram: 11/30/16 0342 11/30/16 0342 Results 24 hrs Laboratory Tests Test 11/29/16 19:30 11/30/16 03:42 White Blood Count 8.2 # 8.4 Red Blood Count 3.84 L 3.62 L Hemoglobin 9.1 L 8.7 L Hematocrit 29.6 L 27.9 L Mean Corpuscular Volume 77.1 L 77.1 L Mean Corpuscular Hemoglobin 23.7 L 24.0 L Mean Corpuscular Hemoglobin Concent 30.7 L 31.2 L Red Cell Distribution Width 18.0 H 17.9 H Platelet Count 236 209 Mean Platelet Volume 10.7 H 10.7 H Neutrophils % 75.6 66.1 Lymphocytes % 11.7 L 16.4 Monocytes % 9.5 14.0 H Eosinophils % 1.0 1.8 Basophils % 0.4 0.4 Nucleated Red Blood Cells % 0.4 H 0.2 H Neutrophils # 6.2 5.6 Lymphocytes # 1.0 1.4 Monocytes # 0.8 1.2 H Eosinophils # 0.1 0.2 Basophils # 0.0 0.0 Nucleated Red Blood Cells # 0.0 0.0 Sodium Level 144 Potassium Level 3.0 L Chloride Level 104 Carbon Dioxide Level 25 Anion Gap 18 #H Blood Urea Nitrogen 8 Creatinine 0.66 Glucose Level 80 Calcium Level 7.8 L Magnesium Level 1.7 Vancomycin Level Trough 6.4 L Medications Medications Current Medications Aspirin (Aspirin) 81 mg DAILY PO Last administered on 11/30/16 08:43; Admin Dose 81 MG; Start 11/29/16 at 09:00 Fluticasone Propionate (Flonase 0.05% Nasal) 1 spray BID NASAL Last administered on 11/30/16 08:43; Admin Dose 1 SPRAY; Start 11/28/16 at 21:00 Furosemide (Lasix) 40 mg BID@06,18 PO Last administered on 11/30/16 05:28; Admin Dose 40 MG; Start 11/28/16 at 18:00 Metoprolol Tartrate (Lopressor) 150 mg BID PO Last administered on 11/30/16 08 :46; Admin Dose 150 MG; Start 11/28/16 at 21:00 Tramadol HCl 50 mg 50 mg Q4 PRN PO PAIN Last administered on 11/30/16 07:02; Admin Dose 50 MG; Start 11/28/16 at 14:30 Sodium Chloride (NS) 1,000 ml @ 75 mls/hr [id number] IV Last administered on 11/30 05:29; Admin Dose 75 MLS/HR; Start 11/28/16 at 14:40 Ondansetron HCl (Zofran Inj) 4 mg Q6H PRN IV NAUSEA AND/OR VOMITING Last administered on 11/29/16 18:03; Admin Dose 4 MG; Start 11/28/16 at 15:00 Acetaminophen (Tylenol Tab) 650 mg Q6H PRN PO PAIN LEVEL 1-3 OR FEVER Last administered on 11/30/16 07:01; Admin Dose 650 MG; Start 11/28/16 at 15:00 Acetaminophen (Tylenol Supp) 650 mg Q6H PRN [place] PAIN LEVEL 1-3 OR FEVER; Start 11/28/16 at 15:00 Acetaminophen/ Hydrocodone Bitart ([place] (5/325)) 1 tab Q6H PRN PO MODERATE PAIN LEVEL 4-6 Last administered on 11/29/16 00:28; Admin Dose 1 TAB; Start at 15:00 Acetaminophen/ Hydrocodone Bitart ([place] (5/325)) 2 tab Q6H PRN PO SEVERE PAIN LEVEL 7-10 Last administered on 11/29/16 19:10; Admin Dose 2 TAB; Start at 15:00 Morphine Sulfate (morphine) 2 mg Q4H PRN IV SEVERE PAIN LEVEL 7-10; Start 11/28 at 15:00 Docusate Sodium (Colace) 100 mg Q12H PRN PO CONSTIPATION; Start 11/28/16 at 15: 00 Magnesium Hydroxide (Milk Of Mag) 30 ml DAILY PRN PO CONSTIPATION; Start at 15:00 Bisacodyl (Dulcolax Supp) 10 mg DAILY PRN [place] CONSTIPATION; Start 11/28/16 at 15 :00 Pantoprazole 40 mg 40 mg DAILY@06 IV Last administered on 11/30/16 05:28; Admin Dose 40 MG; Start 11/28/16 at 16:00 Cefepime HCl (Maxipime 1gm/50 ml (Pmx)) 50 ml @ 100 mls/hr Q12 IVPB Last administered on 11/30/16 08:43; Admin Dose 100 MLS/HR; Start 11/28/16 at 21:00 Carvedilol (Coreg) 6.25 mg BID PO Last administered on 11/30/16 08:44; Admin Dose 6.25 MG; Start 11/28/16 at 21:00 Tamsulosin HCl (Flomax) 0.4 mg DAILY PO Last administered on 11/30/16 08:45; Admin Dose 0.4 MG; Start 11/29/16 at 09:00 Apixaban 2.5 mg 2.5 mg BID PO Last administered on 11/30/16 08:45; Admin Dose 2.5 MG; Start 11/29/16 at 21:00 Vancomycin HCl/ Sodium Chloride (Vancocin/NS) 250 ml @ 83.333 mls/ hr Q8H IVPB Last administered on 11/30/16 12:47; Admin Dose 83.333 MLS/HR; Start at 13:00 Miscellaneous Information (*Rx Drug Level Order Reminder*) VANCOMYCIN TROUGH AT 0400 ONCE ONCE XX ; Start 12/01/16 at 04:00; Stop 12/01/16 at 04:01 URBAN STOCKTON November 30, 2016 14:59
--- NOTE | 2016-11-30 16:27 | CONS ---
Date/Time of Note Date/Time of Note DATE: 11/30/16 TIME: 16:24 Assessment/Plan Assessment/Plan Chief Complaint/Hosp Course ID PROGRESS NOTE CURRENT ABX: Cefepime + Vanco IV 24H INTERVAL SUMMARY * Tspike today 103.0 * 56 yo M, A/A/O, good historian, eating lunch * Reports dysuria mild burning, no hematuria, voiding OK * NO fever today, no CP,SOB . ------ PHYSICAL EXAMINATION: VITAL SIGNS: Afebrile, VSS, NAD GENERAL:NAD, A/A/O HEENT: Unremarkable NECK: Full ROM LUNGS: Equal chest rise without dyspnea on observation HEART: RRR ABDOMEN: Soft EXTREMITIES: Warm SKIN: Intact NEUROLOGICAL: Grossly intact ID IMPRESSION: 56 yo M admit with: 1. Sepsis on admission w/fever 102.1, myalgia, mild tachycardia, leukocytosis = > Dx with Sepsis due to UTI @ [place] recent-> DC'd on po Keflex w/ persistent fevers. 2. Complicated UTI w/ hematuria per UA w/ hx of Renal Stones * ABD X-ray w/(+) Possible large renal and ureteral stones. CT KUB may be helpful. 3. Hypertension. 4. H/O Mitral valve replacement ~2013 [facility] 3. Atrial fibrillation, on Eliquis-> s/p cardioversion prior to admission, EKG in ED revealed NSR 5. GERD w/H/O Chronic gastritis per EGD PATHO Report December 2015 A-Gastric biopsy : * -- Chronic gastritis, mild to focally moderate, active, involving antral and oxyntic mucosa. * -- No Helicobacter organisms are identified in a Giemsa stain * -- There is no evidence of intestinal metaplasia or malignancy. 6. H/O Polypectomy December 2015 B-Cecum, polyp, biopsy: * -- Diminutive tubular adenoma. * -- Normal mucosa is also present. * -- There is no evidence of malignancy. (-) MRSA Nares INVASIVES: PIV CURRENT ABX: Cefepime + Vanco IV-> DC'd ID RECOMMENDATION 1. Continue current ABX & await clinical improvement. 2. Consider CT ABD per radiology recommendations r/o obstructive uropathy; consider urology consult if obstructive renal stones present. 3. Obtain micro records from [place] -> taper ABX per micro results -- probably DC Vanco IV soon .. Problems: Consultation Date/Type/Reason Admit Date/Time November 28, 2016 at 11:40 Exam/Review of Systems Vital Signs Vitals Vital Signs Date Time Temp Pulse Resp B/P Pulse Ox O2 Delivery O2 Flow Rate FiO2 11/30/16 16:06 69 11/30/16 15:18 98.7 19 115/65 96 11/28/16 13:00 Room Air 11/28/16 08:31 2.0 Intake and Output 11/29/16 11/29/16 11/30/16 15:00 23:00 07:00 Intake Total 50 ml 2295 ml 220 ml Output Total 600 ml 450 ml Balance 50 ml 1695 ml -230 ml Results Result Diagram: 11/30/16 0342 11/30/16 0342 Results 24 hrs Laboratory Tests Test 11/29/16 19:30 11/30/16 03:42 White Blood Count 8.2 # 8.4 Red Blood Count 3.84 L 3.62 L Hemoglobin 9.1 L 8.7 L Hematocrit 29.6 L 27.9 L Mean Corpuscular Volume 77.1 L 77.1 L Mean Corpuscular Hemoglobin 23.7 L 24.0 L Mean Corpuscular Hemoglobin Concent 30.7 L 31.2 L Red Cell Distribution Width 18.0 H 17.9 H Platelet Count 236 209 Mean Platelet Volume 10.7 H 10.7 H Neutrophils % 75.6 66.1 Lymphocytes % 11.7 L 16.4 Monocytes % 9.5 14.0 H Eosinophils % 1.0 1.8 Basophils % 0.4 0.4 Nucleated Red Blood Cells % 0.4 H 0.2 H Neutrophils # 6.2 5.6 Lymphocytes # 1.0 1.4 Monocytes # 0.8 1.2 H Eosinophils # 0.1 0.2 Basophils # 0.0 0.0 Nucleated Red Blood Cells # 0.0 0.0 Sodium Level 144 Potassium Level 3.0 L Chloride Level 104 Carbon Dioxide Level 25 Anion Gap 18 #H Blood Urea Nitrogen 8 Creatinine 0.66 Glucose Level 80 Calcium Level 7.8 L Magnesium Level 1.7 Vancomycin Level Trough 6.4 L Medications Medications Current Medications Aspirin (Aspirin) 81 mg DAILY PO Last administered on 11/30/16 08:43; Admin Dose 81 MG; Start 11/29/16 at 09:00 Fluticasone Propionate (Flonase 0.05% Nasal) 1 spray BID NASAL Last administered on 11/30/16 08:43; Admin Dose 1 SPRAY; Start 11/28/16 at 21:00 Furosemide (Lasix) 40 mg BID@06,18 PO Last administered on 11/30/16 05:28; Admin Dose 40 MG; Start 11/28/16 at 18:00 Metoprolol Tartrate (Lopressor) 150 mg BID PO Last administered on 11/30/16 08 :46; Admin Dose 150 MG; Start 11/28/16 at 21:00 Tramadol HCl 50 mg 50 mg Q4 PRN PO PAIN Last administered on 11/30/16 07:02; Admin Dose 50 MG; Start 11/28/16 at 14:30 Sodium Chloride (NS) 1,000 ml @ 75 mls/hr [id number] IV Last administered on 11/30 05:29; Admin Dose 75 MLS/HR; Start 11/28/16 at 14:40 Ondansetron HCl (Zofran Inj) 4 mg Q6H PRN IV NAUSEA AND/OR VOMITING Last administered on 11/29/16 18:03; Admin Dose 4 MG; Start 11/28/16 at 15:00 Acetaminophen (Tylenol Tab) 650 mg Q6H PRN PO PAIN LEVEL 1-3 OR FEVER Last administered on 11/30/16 07:01; Admin Dose 650 MG; Start 11/28/16 at 15:00 Acetaminophen (Tylenol Supp) 650 mg Q6H PRN [place] PAIN LEVEL 1-3 OR FEVER; Start 11/28/16 at 15:00 Acetaminophen/ Hydrocodone Bitart ([place] (5/325)) 1 tab Q6H PRN PO MODERATE PAIN LEVEL 4-6 Last administered on 11/29/16 00:28; Admin Dose 1 TAB; Start at 15:00 Acetaminophen/ Hydrocodone Bitart ([place] (5/325)) 2 tab Q6H PRN PO SEVERE PAIN LEVEL 7-10 Last administered on 11/29/16 19:10; Admin Dose 2 TAB; Start at 15:00 Morphine Sulfate (morphine) 2 mg Q4H PRN IV SEVERE PAIN LEVEL 7-10; Start 11/28 at 15:00 Docusate Sodium (Colace) 100 mg Q12H PRN PO CONSTIPATION; Start 11/28/16 at 15: 00 Magnesium Hydroxide (Milk Of Mag) 30 ml DAILY PRN PO CONSTIPATION; Start at 15:00 Bisacodyl (Dulcolax Supp) 10 mg DAILY PRN [place] CONSTIPATION; Start 11/28/16 at 15 :00 Pantoprazole 40 mg 40 mg DAILY@06 IV Last administered on 11/30/16 05:28; Admin Dose 40 MG; Start 11/28/16 at 16:00 Cefepime HCl (Maxipime 1gm/50 ml (Pmx)) 50 ml @ 100 mls/hr Q12 IVPB Last administered on 11/30/16 08:43; Admin Dose 100 MLS/HR; Start 11/28/16 at 21:00 Carvedilol (Coreg) 6.25 mg BID PO Last administered on 11/30/16 08:44; Admin Dose 6.25 MG; Start 11/28/16 at 21:00 Tamsulosin HCl (Flomax) 0.4 mg DAILY PO Last administered on 11/30/16 08:45; Admin Dose 0.4 MG; Start 11/29/16 at 09:00 Apixaban 2.5 mg 2.5 mg BID PO Last administered on 11/30/16 08:45; Admin Dose 2.5 MG; Start 11/29/16 at 21:00 Vancomycin HCl/ Sodium Chloride (Vancocin/NS) 250 ml @ 83.333 mls/ hr Q8H IVPB Last administered on 11/30/16 12:47; Admin Dose 83.333 MLS/HR; Start at 13:00 Miscellaneous Information (*Rx Drug Level Order Reminder*) VANCOMYCIN TROUGH AT 0400 ONCE ONCE XX ; Start 12/01/16 at 04:00; Stop 12/01/16 at 04:01 VERA URBINA NP November 30, 2016 16:27
[2016-11-30] MEDS: HYDROCODONE/APAP (5/325) TAB PO PRN (21:54)
[2016-12-01] VITALS (10 sets, daily range): BP systolic 123–160; BP diastolic 66–83; PULSE 60–78; RESP 18–21
[2016-12-01] MEDS: FUROSEMIDE 20 MG TAB PO SCH ×2 (06:40→17:22)
[2016-12-01] MEDS: PANTOPRAZOLE 40 MG INJ IV SCH (06:40)
[2016-12-01] MEDS: VANCOMYCIN 1.25 GM in SOD CHLORIDE 0.9% 250 ML IVPB SCH (06:40)
[2016-12-01] MEDS: HYDROCODONE/APAP (5/325) TAB PO PRN (06:43)
[2016-12-01] MEDS: CEFEPIME 1GM/50 ML (PMX) 50 ML IVPB SCH (09:07)
[2016-12-01] MEDS: APIXABAN 5 MG TABLET PO SCH (09:08)
[2016-12-01] MEDS: METOPROLOL 50 MG TAB PO SCH (09:08)
[2016-12-01] MEDS: FLUTICASONE 0.05% 16 GM NAS SPRAY NASAL SCH (09:09)
[2016-12-01] MEDS: ASPIRIN 81 MG TAB PO SCH (09:09)
[2016-12-01] MEDS: TAMSULOSIN (SR) 0.4 MG CAP PO SCH (09:09)
[2016-12-01] MEDS: SOD CHLORIDE 0.9% 1,000 ML IV SCH (09:09)
[2016-12-01] MEDS ORDERED: POTASSIUM CHLORIDE (SR) 20 MEQ TAB PO STA (11:14)
--- NOTE | 2016-12-01 11:19 | PN ---
Date/Time of Note Date/Time of Note DATE: 12/01/16 TIME: 11:17 Assessment/Plan Lines/Catheters IV [facility] Type (from [facility] Peripheral IV Urinary Cath still in place: No Assessment/Plan Assessment/Plan Hypokalemia, dyslipidemia with a low HDL, mild hypomagnesemia, iron deficiency anemia, likely secondary to chronic blood loss from hematuria versus gastritis Chronic gastritis on EGD from 2015 without H. pyloriBPH, status post mitral valve replacement on Eliquis probable cardiomyopathy on Lasix rule out paroxysmal atrial fibrillation history of kidney stones Exam/Review of Systems Vital Signs Vitals Vital Signs Date Time Temp Pulse Resp B/P Pulse Ox O2 Delivery O2 Flow Rate FiO2 12/01/16 08:02 78 12/01/16 08:01 97.8 18 160/74 98 11/28/16 13:00 Room Air 11/28/16 08:31 2.0 Intake and Output 11/30/16 11/30/16 12/01/16 15:00 23:00 07:00 Intake Total 675 ml 2675 ml 970 ml Output Total 450 ml Balance 675 ml 2675 ml 520 ml Results Result Diagram: 11/30/16 0342 11/30/16 0342 Medications Medications Current Medications Aspirin (Aspirin) 81 mg DAILY PO Last administered on 12/01/16 09:09; Admin Dose 81 MG; Start 11/29/16 at 09:00 Fluticasone Propionate (Flonase 0.05% Nasal) 1 spray BID NASAL Last administered on 12/01/16 09:09; Admin Dose 1 SPRAY; Start 11/28/16 at 21:00 Furosemide (Lasix) 40 mg BID@06,18 PO Last administered on 12/01/16 06:40; Admin Dose 40 MG; Start 11/28/16 at 18:00 Metoprolol Tartrate (Lopressor) 150 mg BID PO Last administered on 12/01/16 09 :08; Admin Dose 150 MG; Start 11/28/16 at 21:00 Tramadol HCl 50 mg 50 mg Q4 PRN PO PAIN Last administered on 11/30/16 07:02; Admin Dose 50 MG; Start 11/28/16 at 14:30 Sodium Chloride (NS) 1,000 ml @ 75 mls/hr [id number] IV Last administered on 12/01 09:09; Admin Dose 75 MLS/HR; Start 11/28/16 at 14:40 Ondansetron HCl (Zofran Inj) 4 mg Q6H PRN IV NAUSEA AND/OR VOMITING Last administered on 11/29/16 18:03; Admin Dose 4 MG; Start 11/28/16 at 15:00 Acetaminophen (Tylenol Tab) 650 mg Q6H PRN PO PAIN LEVEL 1-3 OR FEVER Last administered on 11/30/16 07:01; Admin Dose 650 MG; Start 11/28/16 at 15:00 Acetaminophen (Tylenol Supp) 650 mg Q6H PRN [place] PAIN LEVEL 1-3 OR FEVER; Start 11/28/16 at 15:00 Acetaminophen/ Hydrocodone Bitart ([place] (5/325)) 1 tab Q6H PRN PO MODERATE PAIN LEVEL 4-6 Last administered on 11/29/16 00:28; Admin Dose 1 TAB; Start at 15:00 Acetaminophen/ Hydrocodone Bitart ([place] (5/325)) 2 tab Q6H PRN PO SEVERE PAIN LEVEL 7-10 Last administered on 12/01/16 06:43; Admin Dose 2 TAB; Start at 15:00 Morphine Sulfate (morphine) 2 mg Q4H PRN IV SEVERE PAIN LEVEL 7-10; Start 11/28 at 15:00 Docusate Sodium (Colace) 100 mg Q12H PRN PO CONSTIPATION; Start 11/28/16 at 15: 00 Magnesium Hydroxide (Milk Of Mag) 30 ml DAILY PRN PO CONSTIPATION; Start at 15:00 Bisacodyl 10 mg 10 mg DAILY PRN [place] CONSTIPATION; Start 11/28/16 at 15:00 Cefepime HCl (Maxipime 1gm/50 ml (Pmx)) 50 ml @ 100 mls/hr Q12 IVPB Last administered on 12/01/16 09:07; Admin Dose 100 MLS/HR; Start 11/28/16 at 21:00 Carvedilol (Coreg) 6.25 mg BID PO Last administered on 12/01/16 09:08; Admin Dose 6.25 MG; Start 11/28/16 at 21:00 Tamsulosin HCl (Flomax) 0.4 mg DAILY PO Last administered on 12/01/16 09:09; Admin Dose 0.4 MG; Start 11/29/16 at 09:00 Apixaban (Eliquis) 2.5 mg BID PO Last administered on 12/01/16 09:08; Admin Dose 2.5 MG; Start 11/29/16 at 21:00 Pantoprazole 40 mg 40 mg DAILY@06 PO ; Start 12/02/16 at 06:00 Vancomycin HCl/ Sodium Chloride (Vancocin/NS) 250 ml @ 83.333 mls/ hr Q8H IVPB ; Start 12/01/16 at 14:00 Miscellaneous Information (*Rx Drug Level Order Reminder*) VANCOMYCIN TROUGH AT 1300 ONCE ONCE XX ; Start 12/01/16 at 13:00; Stop 12/01/16 at 13:01 JP GALDAMEZ December 01, 2016 11:19
[2016-12-01] MEDS ORDERED: POTASSIUM CHLORIDE 250 ML IVPB ONE (11:30)
[2016-12-01] MEDS ORDERED: MAGNESIUM SULFATE 2 GM/50 ML 50 ML IVPB ONE (11:30)
[2016-12-01] MEDS ORDERED: SOD FERRIC GLUC COMPLX 125 MG in SOD CHLORIDE 0.9% 100 ML IVPB SCH (13:00)
[2016-12-01] MEDS ORDERED: VANCOMYCIN 1.25 GM in SOD CHLORIDE 0.9% 250 ML IVPB SCH (14:00)
[2016-12-01] MEDS ORDERED: ASC500 PO (14:19)
[2016-12-01] MEDS ORDERED: AMOX1TAB10 PO (14:19)
[2016-12-01] MEDS ORDERED: DOCU-216 PO (14:19)
[2016-12-01] MEDS ORDERED: CIPR500T4 PO (14:19)
[2016-12-01] MEDS ORDERED: FER325 PO (14:19)
--- NOTE | 2016-12-01 15:31 | CONS ---
Date/Time of Note Date/Time of Note DATE: 12/01/16 TIME: 15:29 Assessment/Plan Assessment/Plan Chief Complaint/Hosp Course ID PROGRESS NOTE CURRENT ABX: Cefepime + Vanco IV 24H INTERVAL SUMMARY * Afebrile today after Tspike 103.0 am yesterday ? etiology * 56 yo M, A/A/O -- feels better, talking on phone, no new issues * Voiding OK * NO fever today, no CP,SOB . ------ PHYSICAL EXAMINATION: VITAL SIGNS: Afebrile, VSS, NAD GENERAL:NAD, A/A/O HEENT: Unremarkable NECK: Full ROM LUNGS: Equal chest rise without dyspnea on observation HEART: RRR ABDOMEN: Soft EXTREMITIES: Warm SKIN: Intact NEUROLOGICAL: Grossly intact ID IMPRESSION: 56 yo M admit with: 1. Sepsis on admission w/fever 102.1, myalgia, mild tachycardia, leukocytosis = > Dx with Sepsis due to UTI @ [place] recent-> DC'd on po Keflex w/ persistent fevers. 2. Complicated UTI w/ hematuria per UA w/ hx of Renal Stones * ABD X-ray w/(+) Possible large renal and ureteral stones. CT KUB may be helpful. 3. Hypertension. 4. H/O Mitral valve replacement ~2013 [facility] 3. Atrial fibrillation, on Eliquis-> s/p cardioversion prior to admission, EKG in ED revealed NSR 5. GERD w/H/O Chronic gastritis per EGD PATHO Report December 2015 A-Gastric biopsy : * -- Chronic gastritis, mild to focally moderate, active, involving antral and oxyntic mucosa. * -- No Helicobacter organisms are identified in a Giemsa stain * -- There is no evidence of intestinal metaplasia or malignancy. 6. H/O Polypectomy December 2015 B-Cecum, polyp, biopsy: * -- Diminutive tubular adenoma. * -- Normal mucosa is also present. * -- There is no evidence of malignancy. (-) MRSA Nares INVASIVES: PIV CURRENT ABX: Cefepime + + Vanco IV ID RECOMMENDATION 1. Continue current ABX & await clinical improvement. 2. Obtain micro records from [place] -> taper ABX per micro results [place] if/when available .. Problems: Consultation Date/Type/Reason Admit Date/Time November 28, 2016 at 11:40 Exam/Review of Systems Vital Signs Vitals Vital Signs Date Time Temp Pulse Resp B/P Pulse Ox O2 Delivery O2 Flow Rate FiO2 12/01/16 12:14 60 12/01/16 11:44 98.0 18 143/66 98 11/28/16 13:00 Room Air 11/28/16 08:31 2.0 Intake and Output 11/30/16 11/30/16 12/01/16 15:00 23:00 07:00 Intake Total 675 ml 2675 ml 970 ml Output Total 450 ml Balance 675 ml 2675 ml 520 ml Results Result Diagram: 11/30/16 0342 11/30/16 0342 Medications Medications Current Medications Aspirin (Aspirin) 81 mg DAILY PO Last administered on 12/01/16 09:09; Admin Dose 81 MG; Start 11/29/16 at 09:00 Fluticasone Propionate (Flonase 0.05% Nasal) 1 spray BID NASAL Last administered on 12/01/16 09:09; Admin Dose 1 SPRAY; Start 11/28/16 at 21:00 Furosemide (Lasix) 40 mg BID@06,18 PO Last administered on 12/01/16 06:40; Admin Dose 40 MG; Start 11/28/16 at 18:00 Metoprolol Tartrate (Lopressor) 150 mg BID PO Last administered on 12/01/16 09 :08; Admin Dose 150 MG; Start 11/28/16 at 21:00 Tramadol HCl 50 mg 50 mg Q4 PRN PO PAIN Last administered on 11/30/16 07:02; Admin Dose 50 MG; Start 11/28/16 at 14:30 Sodium Chloride (NS) 1,000 ml @ 75 mls/hr [id number] IV Last administered on 12/01 09:09; Admin Dose 75 MLS/HR; Start 11/28/16 at 14:40 Ondansetron HCl (Zofran Inj) 4 mg Q6H PRN IV NAUSEA AND/OR VOMITING Last administered on 11/29/16 18:03; Admin Dose 4 MG; Start 11/28/16 at 15:00 Acetaminophen (Tylenol Tab) 650 mg Q6H PRN PO PAIN LEVEL 1-3 OR FEVER Last administered on 11/30/16 07:01; Admin Dose 650 MG; Start 11/28/16 at 15:00 Acetaminophen (Tylenol Supp) 650 mg Q6H PRN WI PAIN LEVEL 1-3 OR FEVER; Start 11/28/16 at 15:00 Acetaminophen/ Hydrocodone Bitart ([place] (5/325)) 1 tab Q6H PRN PO MODERATE PAIN LEVEL 4-6 Last administered on 11/29/16 00:28; Admin Dose 1 TAB; Start at 15:00 Acetaminophen/ Hydrocodone Bitart ([place] (5/325)) 2 tab Q6H PRN PO SEVERE PAIN LEVEL 7-10 Last administered on 12/01/16 06:43; Admin Dose 2 TAB; Start at 15:00 Morphine Sulfate (morphine) 2 mg Q4H PRN IV SEVERE PAIN LEVEL 7-10; Start 11/28 at 15:00 Docusate Sodium (Colace) 100 mg Q12H PRN PO CONSTIPATION; Start 11/28/16 at 15: 00 Magnesium Hydroxide (Milk Of Mag) 30 ml DAILY PRN PO CONSTIPATION; Start at 15:00 Bisacodyl 10 mg 10 mg DAILY PRN WI CONSTIPATION; Start 11/28/16 at 15:00 Cefepime HCl (Maxipime 1gm/50 ml (Pmx)) 50 ml @ 100 mls/hr Q12 IVPB Last administered on 12/01/16 09:07; Admin Dose 100 MLS/HR; Start 11/28/16 at 21:00 Carvedilol (Coreg) 6.25 mg BID PO Last administered on 12/01/16 09:08; Admin Dose 6.25 MG; Start 11/28/16 at 21:00 Tamsulosin HCl (Flomax) 0.4 mg DAILY PO Last administered on 12/01/16 09:09; Admin Dose 0.4 MG; Start 11/29/16 at 09:00 Apixaban (Eliquis) 2.5 mg BID PO Last administered on 12/01/16 09:08; Admin Dose 2.5 MG; Start 11/29/16 at 21:00 Pantoprazole 40 mg 40 mg DAILY@06 PO ; Start 12/02/16 at 06:00 Vancomycin HCl 1.25 gm/Sodium Chloride 250 ml @ 83.333 mls/ hr Q8H IVPB ; Start 12/01/16 at 14:00 Potassium Chloride 250 ml @ 62.5 mls/hr ONCE ONCE IVPB Last administered on 13:54; Admin Dose 62.5 MLS/HR; Start 12/01/16 at 11:30; Stop 12/01/16 at 15:29 Ferric Sodium Gluconate Complex/ Sodium Chloride (Ferrlecit/NS) 110 ml @ 110 mls/hr Q24H IVPB Last administered on 12/01/16 13:52; Admin Dose 110 MLS/HR; Start 12/01/16 at 13:00; Stop 12/05/16 at 13:59 VERA URBINA NP December 01, 2016 15:31
--- NOTE | 2016-12-01 18:59 | DS ---
Date/Time of Note Date/Time of Note DATE: 12/01/16 TIME: 18:30 Discharge Summary Admission/Discharge Info Admit Date/Time November 28, 2016 at 11:40 Discharge Date/Time December 01, 2016 at 17:50 Final Diagnosis 1. Sepsis: source unclear: resolved 2. Essential hypertension. controlled 3. Atrial fibrillation s/p successful cardioversion about 5 days ago 5. Anemia likley 2/2 iron deficiency from chronic occult hematuria from kidney stones 6. dyslipidemia with a low HDL 7. Mild hypomagnesemia: repleted 8. Chronic gastritis on EGD from 2016 without H. pylori 9. Chronic BPH 10. Status post mitral valve replacement 11. probable cardiomyopathy on Lasix 12, history of kidney stones . Patient Condition: Stable Consults Roberta: ID . Hx of Present Illness This is a 56-year-old male with reported past medical history of hypertension and suspect CHF who did come to [facility] due to reports of generalized body ache and fevers. Of note patient was recently seen by his rewind operator 2 days prior to his admission at [facility] for JOSELINE and reported cardioversion. At that time over that he was noted with possible UTI. It was reported that the patient left AMA and was discharged with Keflex. He reports that his fevers and general body aches progressively got worse and subsequently went to [facility] for further evaluation. Upon examination he did have initial urinalysis that did show him to have a negative leukocyte esterase test. He did have a white count of 21.2 and imaging of his chest show no evidence of active cardiopulmonary disease process. He also was noted with a fever as high as 102.1. Patient also noted with some tachycardia with heart rate 103. Patient denies any chest pain or shortness of breath. He denies any sick contacts or any coughing. He also reports that he has not had his flu shot. He denies any other symptoms besides his general body aches and chills and fevers. We will evaluate him for the aformentiond issues Hospital Course This 56-year-old male was admitted and commenced on broad-spectrum antibiotics. He was seen by infection disease and was started on a wide spectrum as there was no obvious source of his sepsis. He however responded well to this regimen and that that is at this time, he has been fever free for more than 24 hours and he is requesting to be discharged. Blood and urine cultures have been repeatedly negative, and an influenza screen was also negative. He did have multiple electrolyte abnormalities including hypomagnesemia and hypokalemia all of which were corrected. He also had a mild elevation in his AST and hypochromic microcytic anemia that was somewhat concerning in the light of the fact that the patient was on anticoagulation therapy post cardioversion. I spoken with the rewind operator who did his cardioversion Dr. Apple and he is okay with the patient being discharged home but patient has to stay on Eliquis for at least a month. I have advised the patient to follow-up closely with his primary care doctor for continued electrolyte monitoring as well as continued monitoring of his hemoglobin levels. I feel that his anemia may be secondary to occult hematuria likely from kidney stones, and this might be worsened by Eliquis. However Eliquis is necessary for his cardiac function and as such patient would be better monitored closely by his primary care doctor. I have explained this to him in detail; he has verbalized understanding. Comorbidities were also aggressively managed as per Med records. Patient at this time has been evaluated and examined in detail and is assessed to be in stable condition and ready for discharge. Home Meds Active Scripts Amoxicillin/Potassium Clav (Amox-Clav 875-125 mg Tablet) 875-125 mg Tab, 1 TAB PO BID, #14 TAB Prov:JP GALDAMEZ. 12/01/16 Ciprofloxacin Hcl* (Ciprofloxacin Hcl*) 500 Mg Tablet, 500 MG PO BID, #14 TAB Prov:JP GALDAMEZ . 12/01/16 Ascorbic Acid (Vitamin C) 500 Mg Tab, 500 MG PO DAILY for 30 Days, TAB Prov:JP GALADMEZ . 12/01/16 Ferrous Sulfate* (Ferrous Sulfate*) 325 Mg Tabec, 325 MG PO TID for 30 Days, TAB Prov:JP GALDAMEZ . 12/01/16 Docusate Sodium (Dok) 100 Mg Capsule, 100 MG PO Q12H for 30 Days, CAP Prov:RUDOLPHJP . 12/01/16 Tramadol HCl (Tramadol HCl) 50 Mg Tablet, 50 MG PO Q4 Y for PAIN, #20 TAB Prov:JOSSUE HALEY PA-C 05/17/16 Reported Medications Apixaban* (Eliquis*) 2.5 Mg Tablet, 2.5 MG PO BID, TAB 11/28/16 Carvedilol* (Coreg*) 6.25 Mg Tablet, 6.25 MG PO BID, #60 TAB 11/28/16 Tamsulosin Hcl* (Flomax*) 0.4 Mg Cap.er.24h, 0.4 MG PO DAILY, CAP 11/28/16 Omeprazole* (Omeprazole*) 40 Mg Capsule.dr, 40 MG PO DAILY, #30 CAP 11/28/16 Metoprolol Tartrate* (Lopressor*) 50 Mg Tab, 150 MG PO BID, #60 TAB 11/28/16 Furosemide* (Furosemide*) 20 Mg Tablet, 40 MG PO BID, #30 TAB 11/28/16 Fluticasone Propionate (Flonase Allergy Relief) 9.9 Ml [place].susp, 1 SPRAY NASAL BID, #1 BOTTLE TO EACH NOSTRIL 11/28/16 Aspirin* (Aspirin* Chew) 81 Mg Tab.chew, 81 MG PO DAILY, TAB.CHEW 11/28/16 Follow-up Plan Patient will call his primary doctor's office and try and get an appointment before the end of the week for hemoglobin check and he will also follow-up with his rewind operator as previously scheduled. . Primary Care Provider Not On Staff Doctor Time spent on discharge: > 30 minutes JP GALDAMEZ December 01, 2016 18:40
[2016-12-02] MEDS ORDERED: PANTOPRAZOLE (EC) 40 MG TAB PO SCH (06:00)
== END 2016-12-01 17:50 | disposition home or self-care (01) | DRG 872 ==
LOC: FTE 06:37 → TEL 11:40
PROVIDERS: ADMIT Hospitalist; ATTEND Hospitalist
DX: A41.9 Sepsis, unspecified organism (principal); I42.9 Cardiomyopathy, unspecified; I48.91 Unspecified atrial fibrillation; E83.42 Hypomagnesemia; N20.0 Calculus of kidney; N39.0 Urinary tract infection, site not specified; I10 Essential (primary) hypertension; E87.6 Hypokalemia; E78.5 Hyperlipidemia, unspecified; N40.0 Benign prostatic hyperplasia without lower urinary tract symptoms; D50.0 Iron deficiency anemia secondary to blood loss (chronic); K21.9 Gastro-esophageal reflux disease without esophagitis; K29.50 Unspecified chronic gastritis without bleeding; R31.9 Hematuria, unspecified; Z95.2 Presence of prosthetic heart valve; Z86.79 Personal history of other diseases of the circulatory system; Z87.442 Personal history of urinary calculi
CPT/HCPCS: 36415; 71010; 80048; 80053; 80061; 80202; 81001; 82565; 83036; 83540; 83605; 83735; 84100; 84436; 84443; 84479; 84484; 84520; 85025; 85610; 85730; 87040; 87086; 87400; 93005; 96361; 96365; 96375; 96376; C9113; J0692; J0696; J1200; J1885; J2270; J2405; J2765; J2916; J3370; J3475; J3480; J7030; J7040; J7050

== ENCOUNTER 2017-01-28 11:09 | Emergency (ER) | payer SELFPAY ==
[~2017-01-28] VITALS: Ht 175.3 cm; Wt 83.0 kg
[~2017-01-28 11:09] MED LIST changes: +AMOX1TAB10 PO; +APIX2.5T PO; +ASC500 PO; +ASPI81TA3 PO; -ASPIRIN; +CARV6.25 PO; -CARVEDILOL; +CIPR500T4 PO; +DOCU-216 PO; +FER325 PO; +FLUT9.9S NASAL; +FURO20TA3 PO; -LISINOPRIL; +METO-429 PO; +OMEP40CA6 PO; -OMEPRAZOLE; -POLY17PO6 PO; +TAMS-14 PO
[2017-01-28 11:12] VITALS: Ht 175.3 cm; Wt 83.0 kg
--- NOTE | 2017-01-28 12:12 | ERA ---
ER Documentation Chief Complaint Date/Time DATE: 01/28/17 TIME: 12:11 Chief Complaint abd pain x 21 weeks ROS All systems reviewed and are negative except as per history of present illness. Medications Home Meds Active Scripts Amoxicillin/Potassium Clav (Amox-Clav 875-125 mg Tablet) 875-125 mg Tab, 1 TAB PO BID, #14 TAB Prov:JP GALDAMEZ . 12/01/16 Ciprofloxacin Hcl* (Ciprofloxacin Hcl*) 500 Mg Tablet, 500 MG PO BID, #14 TAB Prov[facility]. 12/01/16 Ascorbic Acid (Vitamin C) 500 Mg Tab, 500 MG PO DAILY for 30 Days, TAB Prov[facility]. 12/01/16 Ferrous Sulfate* (Ferrous Sulfate*) 325 Mg Tabec, 325 MG PO TID for 30 Days, TAB Prov:[facility]. 12/01/16 Docusate Sodium (Dok) 100 Mg Capsule, 100 MG PO Q12H for 30 Days, CAP Prov[facility]. 12/01/16 Tramadol HCl (Tramadol HCl) 50 Mg Tablet, 50 MG PO Q4 Y for PAIN, #20 TAB Prov:JOSSUE HALEY PA-C 05/17/16 Reported Medications Apixaban* (Eliquis*) 2.5 Mg Tablet, 2.5 MG PO BID, TAB 11/28/16 Carvedilol* (Coreg*) 6.25 Mg Tablet, 6.25 MG PO BID, #60 TAB 11/28/16 Tamsulosin Hcl* (Flomax*) 0.4 Mg Cap.er.24h, 0.4 MG PO DAILY, CAP 11/28/16 Omeprazole* (Omeprazole*) 40 Mg Capsule.dr, 40 MG PO DAILY, #30 CAP 11/28/16 Metoprolol Tartrate* (Lopressor*) 50 Mg Tab, 150 MG PO BID, #60 TAB 11/28/16 Furosemide* (Furosemide*) 20 Mg Tablet, 40 MG PO BID, #30 TAB 11/28/16 Fluticasone Propionate (Flonase Allergy Relief) 9.9 Ml [place].susp, 1 SPRAY NASAL BID, #1 BOTTLE TO EACH NOSTRIL 11/28/16 Aspirin* (Aspirin* Chew) 81 Mg Tab.chew, 81 MG PO DAILY, TAB.CHEW 11/28/16 Allergies Allergies: Coded Allergies: No Known Allergy (Unverified , 01/28/17) PMhx/Soc History of Surgery: Yes (MV REPLACEMENT) Anesthesia Reaction: No Hx Respiratory Disorders: No Hx Cardiac Disorders: Yes (HTN, AFIB) Hx Psychiatric Problems: No Hx Miscellaneous Medical Probl: Yes (CURRENTLY TREATED FOR UTI) Hx Alcohol Use: No Hx Substance Use: No Hx Tobacco Use: No Physical Exam Vitals Vital Signs Date Time Temp Pulse Resp B/P Pulse Ox O2 Delivery O2 Flow Rate FiO2 01/28/17 11:12 92 18 144/82 97 Physical Exam Const: [] Head: Atraumatic Eyes: Normal Conjunctiva ENT: Normal External Ears, Nose and Mouth. Neck: Full range of motion..~ No meningismus. Resp: Clear to auscultation bilaterally Cardio: Regular rate and rhythm, no murmurs Abd: Soft, non tender, non distended. Normal bowel sounds Skin: No petechiae or rashes Back: No midline or flank tenderness Ext: No cyanosis, or edema Neur: Awake and alert Psych: Normal Mood and Affect YURIDIA TOLENTINO MD Jan 28, 2017 12:12
== END 2017-01-28 12:45 | disposition left against medical advice (07) ==
LOC: E/R 11:09
DX: Z53.21 Procedure and treatment not carried out due to patient leaving prior to being seen by health care provider (principal)

== ENCOUNTER → 2017-05-19 | Outpatient (CLI) | payer OTHER ==
--- NOTE | 2017-05-19 15:26 | HKNOTE ---
DATE OF SERVICE: 05/19/2017 REFERRING PHYSICIAN: Dr. Birgit Rocha [address] [facility], [place], [place] [address] MAIN COMPLAINT: Pain in the right buttock. HISTORY OF MAIN COMPLAINT: The patient is a 57-year-old male who complains of pain in his lower beena k and right buttocks for about 3 years. There is no history of injury. He saw Dr. Birgit Rocha who ordered an MRI scan of his pelvis and hips, as well as an MRI scan of the lumbar spine. He was referred to me for further evaluation and treatment. PRESENT COMPLAINTS: He has no groin pain in either hip whatsoever. There is pain in the left butto ck, which radiates to the lower back. The pain does not radiate down his legs. He has no numbness or tingling in his legs. He is not taking any medications for the pain. He does not have a history of back problems and has not had an MRI scan of the lumbar spine prior to this date. He does have pain radiating down the right leg, to just below the knee. He has some numbness in the same distrib ution. On a flat and level surface, he can walk 2 blocks and then he starts developing pain in the right leg and has to stop. He does not use a walking aid. He does limp all the time. His left leg feels longer than the right leg. He has difficulty clipping his toenails on both sides. PAST ORTHOPEDIC HISTORY AND PREVIOUS ORTHOPEDIC OPERATIONS: None. PRIOR CORTISONE INTAKE: None. ALCOHOL INTAKE: Minimal. OTHER JOINT PROBLEMS: None. PRIOR BLOOD TESTS FOR ARTHRITIS: None. PRIOR INJURIES TO HIPS OR KNEES: None. WORK STATUS: Not working at the present time (? disability). PAST MEDICAL HISTORY: 1. Hypertension. 2. Latent tuberculosis. 3. Chronic atrial fibrillation. 4. Iron deficiency anemia. 5. Chronic headaches. 6. Benign prostatic hyperplasia. 7. Type 2 diabetes. 8. Vitamin D insufficiency. 9. GERD. 10. Peptic ulcer disease. PAST SURGICAL HISTORY: 1. Open heart surgery for a valve replacement at [facility] 3 years ago. 2. Fractured right femur 20 years ago. DRUG ALLERGIES: NONE. MEDICATIONS: 1. Carvedilol. 2. Aspirin. 3. Ranitidine. FAMILY HISTORY: Both parents have diabetes. SYSTEMS REVIEW: Prone to headaches and heartburn. Tingling sensations and numbness in the right le g, hypertension, diabetes, hemorrhoids. HABITS: Patient does not smoke or drink alcoholic beverages. PHYSICAL EXAMINATION: GENERAL: Patient is a youthful and fit-looking 57-year-old male. He walks without a walking aid. His gait is normal. VITAL SIGNS: Height 5 feet 6 inches, weight 192 pounds, blood pressure 155/90, temperature 98.9, pu lse 78 per minute, respirations 12 per minute. BACK: Dynamic pain assessment reveals a pain free range of motion in flexion, extension and rotatio n; lateral reproduced mild pain in the right buttock and leg. Inspection of the spine reveals ____ n o list. There is ____ no lumbar paraspinal muscle spasm. The pelvis is level. Facet stress test is n egative bilaterally. Palpation of the spine demonstrates ____ no tenderness of the spinous processes , facet joints, sacroiliac joint, sciatic notch, or posterior thigh. NEUROLOGIC: Motor examination reveals no muscle deficit in the lower extremities. Deep tendon refle xes in the lower extremities: Right knee jerk 2+, left knee jerk 2+, right ankle jerk 2+, left ankl e jerk 2+. Straight leg raising, sciatic stretch tests negative at 80 degrees on the right, negative at 80 degrees on the left. Lasegue and JOJO tests are negative. HIPS: Both hips have a full range of motion without pain. There is no tenderness anywhere around e ither hip. RIGHT KNEE: The right knee shows normal alignment. Active and passive extension is 0 degrees. Activ e and passive flexion is 135 degrees. The medial and lateral collateral ligaments and cruciate ligam ents are intact. Jorge Luis test is negative. There is no effusion, tenderness, scarring, crepitus, or cysts. The patella tracks normally. There is no tenderness on the articular surface of the patella o r in the patellar groove. The Q angle is normal. LEFT KNEE: The left knee shows normal alignment. Active and passive extension is 0 degrees. Active and passive flexion is 135 degrees. The medial and lateral collateral ligaments and cruciate ligamen ts are intact. Jorge Luis test is negative. There is no effusion, tenderness, scarring, crepitus, or cy sts. The patella tracks normally. There is no tenderness on the articular surface of the patella or in the patellar groove. The Q angle is normal. IMAGING: Plain x-rays of the pelvis and hips obtained at the [facility] today we re reviewed. These are entirely normal. An MRI scan of the pelvis and hips obtained on 04/29/2017 is reported as showing "mild to moderate d egenerative changes of both hips, mild prominent bilateral inguinal lymph nodes." No stress fractures or avascular necrosis. No evidence of tendon tear. Probable benign enchondroma in the right greater trochanter. ____ after tendon in his last report, it was tendon tear. An MRI scan of the lumbar spine obtained on 04/29/[address] Juan Villalpando as showing "m oderate degenerative disk disease at L2-L3, L4-L5 and L5-S1." No significant central canal or gaviota inal narrowing. DIAGNOSES: 1. Lumbar disk disease with right-sided sciatica. 2. Mild degenerative osteoarthritis of both hips. DISCUSSION: Mr. Miller is a 57-year-old male with symptoms and clinical findings that are more in k eeping with lumbar disk disease and radiculopathy, rather than a hip disorder. Although the MRI of his pelvis and hips indicate degenerative changes in both hips, the plain x-rays do not show such changes at all. In addition to this, his symptoms are totally not related to his hips. Hip pain is almost always fe lt in the groin. He has no groin pain whatsoever. DIAGNOSES: 1. Symptoms of a lumbar radiculopathy. 2. Degenerative disk disease of the lumbar spine. 3. Mild degenerative arthritis of both hips (MRI only). 4. Latent tuberculosis. 5. Atrial fibrillation. 6. Type 2 diabetes. 7. Gastroesophageal reflux disease. MANAGEMENT: With regard to his hips, there is no treatment required, and no prophylactic advice aga inst further deterioration. Recommend that he be referred to a senior publications specialist for evaluation of his spine symptoms. My assess ment is that he is not a candidate for spine surgery. After his spine evaluation, he will probably need to have pain management. The patient's history was taken by Yanet Gonzalez, and she stayed in the room to translate through ut. Dictated By: REGLA SOLER/PALLAVI Conf#: [id number] DID#: [id number] CC: BIRGIT ROCHA;*[facility]*
--- NOTE | 2017-05-19 15:35 | HKNOTE ---
DATE OF SERVICE: 05/19/2017 May 19, 2017 Dr. Birgit Rocha [address] [place] [address] RE: Amando Miller Dear Dr. Rocha: Thank you for referring Mr. Amando Miller who was seen in my office today complaining of pain in his h ips. Although he has some arthritic change in his hips noted on MRI, the plain x-rays are relatively norm al. His symptoms are more suggestive of a lumbar problem than a hip problem. No treatment is needed for his hips, but I recommend that he have a spine consultation and thereafte r will probably need to have pain management. Enclosed is a copy of my office notes for your records. With warmest regards, Dictated By: REGLA SOLER/PALLAVI Conf#: [id number] DID#: [id number]
--- NOTE | 2017-05-19 16:44 | RADRPT ---
PROCEDURE: XR Right hip and pelvis. CLINICAL INDICATION: Right hip pain. Pelvic pain. TECHNIQUE: Two views. Frontal pelvis and lateral right hip. COMPARISON: abdomen radiograph dated 05/17/2016. FINDINGS: There is no acute fracture or dislocation. There is an old healed fracture of the proximal to mid sh aft of the right femur. The soft tissues are normal. The right hip is normal. The left hip is grossly normal. There is no lytic or blastic lesion. The upper pelvis is not completely included on the image. IMPRESSION: 1. Old healed fracture of the proximal to mid shaft of the right femur. 2. Otherwise unremarkable images of the right hip and pelvis. RPTAT: QQ .Alejandro Castro MD, MD Date Time Electronically viewed and signed by .Alejandro Castro MD, on 05/19/2017 16:43 .R/
== END | disposition home or self-care (01) ==
LOC: HKI 09:30
DX: M51.36 Other intervertebral disc degeneration, lumbar region (principal); M54.16 Radiculopathy, lumbar region; M16.0 Bilateral primary osteoarthritis of hip; R76.11 Nonspecific reaction to tuberculin skin test without active tuberculosis; I48.91 Unspecified atrial fibrillation; E11.9 Type 2 diabetes mellitus without complications; Z79.84 Long term (current) use of oral hypoglycemic drugs; Z79.82 Long term (current) use of aspirin; Z87.11 Personal history of peptic ulcer disease; Z95.2 Presence of prosthetic heart valve
CPT/HCPCS: 73502; Z7500; G0463

== ENCOUNTER → 2018-01-05 | Emergency (ER) | END | disposition home or self-care (01) ==